=== PATIENT | female | born 1985 | race American Indian/Alaskan Native ===

== ENCOUNTER 2016-04-30 09:19 | Emergency (ER) | payer MEDICAID ==
[2016-04-30 09:48] VITALS: BP 132/80
--- NOTE | 2016-04-30 11:13 | Emergency Department Report ---
HPI - General Chief Complaint: Skin/Abscess/Foreign Body Time Seen by Provider: 04/30/16 10:34 - HPI HPI: 30-year-old female presents today with sore on right sided upper lip 2 days. Denies history of similar symptoms. Denies sick contacts. Positive for minimal bleeding and white discharge. Describes her pain as 3 out of 10. Positive for history of chlamydia but denies any past medical history of herpes. Denies fever, chills, nausea, vomiting, chest pain, shortness of breath , abdominal pain, cough or cold symptoms. ED Past Medical Hx - Past Medical History Hx Hypertension: No Hx Diabetes: No Hx Deep Vein Thrombosis: No Hx Renal Disease: No Hx Sickle Cell Disease: No Hx Seizures: No Hx Asthma: No Hx HIV: No - Surgical History Additional Surgical History: 2 miscarriages in the past. Total of 6 pregnancies - Social History Smoking Status: Never Smoker Substance Use Type: None - Medications Home Medications: Home Medications Medication Instructions Recorded Confirmed Last Taken Type Nitrofurantoin [place]/M-Cryst 100 mg PO Q12HR #14 tabcap 08/22/14 03/24/15 Unknown Rx [Macrobid] Tablet 1 tab PO DAILY 08/22/14 03/24/15 1 Day Ago History 1 Promethazine [Phenergan] 25 mg PO Q12H PRN #12 tab 08/22/14 03/24/15 Unknown Rx Docusate Sodium [Colace CAP] 100 mg PO BID #60 capsule 03/24/15 Unknown Rx HYDROcodone/APAP 5-325 [[place] 1 each PO Q6H PRN #20 tablet 03/24/15 Unknown Rx 5-325 mg TAB] Ibuprofen [Motrin 800 MG tab] 800 mg PO Q8HR PRN #90 tablet 03/24/15 Unknown Rx Naproxen [Naprosyn] 500 mg PO BID #20 tablet 04/30/16 Unknown Rx ED Review of Systems ROS: Stated complaint: INSECT BITE ON LIP Other details as noted in HPI Constitutional: denies: chills, fever, malaise Eyes: denies: eye pain ENT: denies: ear pain, throat pain, congestion Respiratory: denies: cough, shortness of breath, wheezing Cardiovascular: denies: chest pain, palpitations Endocrine: no symptoms reported Gastrointestinal: denies: abdominal pain, nausea, vomiting Neurological: denies: headache, weakness Physical Exam - Physical Exam Vital Signs: Vital Signs 04/30/16 09:44 Temperature 98.1 F Pulse Rate 63 Respiratory 16 Rate Blood Pressure 132/80 O2 Sat by Pulse 100 Oximetry Physical Exam: GENERAL: The patient is well-developed and well-nourished. Patient is in NAD. HEAD: Normocephalic. Atraumatic. EYES: PERRL. NOSE: Normal nasal mucosa with no nasal discharge. THROAT: No erythema, swelling or exudates. LIPS: hyperpigmented lesion with multiple overlying small vesicles noted. No active bleeding or drainage. NECK: Supple, nontender, without lymphadenopathy. CHEST/LUNGS: Clear to auscultation throughout. HEART/CARDIOVASCULAR: Regular rate and rhythm. ABDOMEN: Abdomen is soft, nontender. No guarding or rebound tenderness. EXTREMITIES: Peripheral pulses intact. Capillary refill less than 2 seconds. NEURO: Alert and oriented x 3. Normal gait. ED Course Vital Signs 04/30/16 09:44 Temperature 98.1 F Pulse Rate 63 Respiratory 16 Rate Blood Pressure 132/80 O2 Sat by Pulse 100 Oximetry ED Medical Decision Making - Lab Data Vital Signs 04/30/16 09:44 Temperature 98.1 F Pulse Rate 63 Respiratory 16 Rate Blood Pressure 132/80 O2 Sat by Pulse 100 Oximetry - Medical Decision Making 30-year-old female presents today with a cold sore to her right upper lip. Informed patient pros and cons of acyclovir and patient decided against medication. Patient is in no acute distress at this time. She will be discharged home and is encouraged to follow up with a primary care provider. She will be sent home on naproxen and is encouraged to return to the emergency room for any worsening symptoms. Critical care attestation.: If time is entered above; I have spent that time in minutes in the direct care of this critically ill patient, excluding procedure time. ED Disposition Clinical Impression: Cold sore Disposition: DISCHARGED TO HOME OR SELFCARE Is pt being admited?: No Does the pt Need Aspirin: No Condition: Stable Instructions: Oral Herpes Simplex Virus Infections (ED) Additional Instructions: Follow-up with primary care provider. Return to the emergency department if symptoms worsen. Prescriptions: Naproxen [Naprosyn] 500 mg PO BID #20 tablet Referrals: PRIMARY CARE, [Primary Care Provider] - 3-5 Days [facility] [Outside] - 3-5 Days Forms: Work/School Release Form(ED) Time of Disposition: 11:19
== END 2016-04-30 11:38 | disposition home or self-care (01) ==
LOC: ED 09:19
DX: B00.1 Herpesviral vesicular dermatitis (principal)
CPT/HCPCS: 99282

== ENCOUNTER 2017-05-10 17:44 | Emergency (ER) | payer MEDICAID ==
[2017-05-10 17:50] VITALS: BP 115/76
[2017-05-10 18:05] LABS: Basophils % (Auto) 0.5 % (0.0-1.8); Eosinophils # (Auto) 0.2 K/mm3 (0.0-0.4); Eosinophils % (Auto) 2.3 % (0.0-4.3); Hematocrit 34.6 % (30.3-42.9); Hemoglobin 11.6 gm/dl (10.1-14.3); Lymphocytes # (Auto) 2.6 K/mm3 (1.2-5.4); Lymphocytes % (Auto) 29.3 % (13.4-35.0); Mean Corpuscular HGB Conc 34 % (30-34); Mean Corpuscular Hemoglobin 29 pg (28-32); Mean Corpuscular Volume 87 fl (79-97); Monocytes # (Auto) 0.6 K/mm3 (0.0-0.8); Monocytes % (Auto) 6.2 % (0.0-7.3); Platelet Count 265 K/mm3 (140-440); Red Blood Count 3.98 M/mm3 (3.65-5.03); Red Cell Distribution Width 13.3 % (13.2-15.2)
== END 2017-05-10 17:53 | disposition left against medical advice (07) ==
LOC: ED 17:44
DX: N93.9 Abnormal uterine and vaginal bleeding, unspecified (principal); Z53.21 Procedure and treatment not carried out due to patient leaving prior to being seen by health care provider
CPT/HCPCS: 36415; 84702; 85025; 86850; 86900; 86901

== ENCOUNTER 2017-07-28 11:00 | Outpatient (CLI) | payer MEDICAID ==
[2017-07-28 11:39] VITALS: BP 120/71
[2017-07-28] MEDS ORDERED: LACTATED RINGERS 1,000 ML ONE (11:56)
[2017-07-28] MEDS ORDERED: LACTATED RINGERS 500 ML IV ONE (12:56)
[2017-07-28 13:39] LABS: Bilirubin,Urine NEG (Negative); Blood,Urine NEG (Negative); Color,Urine Yellow (Yellow); Mucus,Urine FEW /HPF; Protein,Urine <15 mg/dL mg/dL (Negative); Urobilinogen,Urine < 2.0 mg/dL (<2.0)
[2017-07-28] MEDS ORDERED: BRETHINE ONE (13:52)
[2017-07-28] MEDS ORDERED: BRETHINE IVP ONE (13:53)
== END 2017-07-28 14:31 | disposition home or self-care (01) ==
LOC: TRG 11:00
PROVIDERS: ATTEND Obstetrics & Gynecology
DX: O47.02 False labor before 37 completed weeks of gestation, second trimester (principal); Z3A.26 26 weeks gestation of pregnancy
CPT/HCPCS: 59025; 81001; J3105; J7120

== ENCOUNTER 2017-08-22 12:05 | Outpatient (CLI) | payer OTHER ==
[2017-08-22] MEDS ORDERED: LACTATED RINGERS 500 ML IV ONE (12:20)
[2017-08-22] MEDS ORDERED: CELESTONE SOLUSPAN IM ONE (13:00)
--- NOTE | 2017-08-22 15:43 | Ultrasound Report ---
FINAL REPORT EXAM: US OB FOLLOW UP HISTORY: labor TECHNIQUE: Transabdominal sonography of the pelvis. PRIORS: None. FINDINGS: There is a single, live intrauterine in cephalic presentation. heart motion is detected and heart rate is 142 beats per minute. Placenta is located posterior and there is no evidence of previa. Cervical length 2.6 cm. Biometric data obtained and corresponds to an estimated gestational age of 30 weeks 3 days and an ultrasound estimated date of delivery of 28 October 2017 (it should be noted that an examination performed earlier in may yield more accurate dating). survey not performed. Amniotic fluid index is 12.2 cm. BPD: 7.58 cm HC: 29.17 cm AC: 25.86 cm FL: 5.50 cm Remainder of the uterus and adnexa grossly unremarkable. IMPRESSION: 1. Single, live intrauterine .
[2017-08-23 06:54] VITALS: BP 104/62
== END 2017-08-22 16:10 | disposition home or self-care (01) ==
LOC: US 12:05 → TRG 12:06 → US 16:10
PROVIDERS: ATTEND Obstetrics & Gynecology
DX: O47.03 False labor before 37 completed weeks of gestation, third trimester (principal); Z3A.30 30 weeks gestation of pregnancy
CPT/HCPCS: 59025; 76816; 96372; J0702; J7120

== ENCOUNTER 2017-08-23 13:52 | Outpatient (CLI) | payer OTHER ==
[2017-08-23 14:07] VITALS: BP 111/66
[2017-08-23] MEDS ORDERED: CELESTONE SOLUSPAN IM ONE (14:10)
--- NOTE | 2017-08-23 14:46 | Progress Note ---
Assessment and Plan A: at 30 weeks gestation. Shortened cervix. P: NST reactive. Betamethasone injection. Keep follow up appointment at [facility]. Rest at home; avoid IC. PTL warning signs discussed with pt. Subjective - Subjective Date of service: 08/23/17 Principal diagnosis: at 30 weeks gestation. Interval history: 31 year old female patient presents to triage for her second Betamethasone injection and an NST. Pt. states she had positive FFN and shortened cervix in office earlier this week. Pt. reports active movement. She denies contractions. She denies leaking of fluid or vaginal bleeding. She states she has been resting. NST reactive. No contractions noted per monitor. No contractions palpated. Patient received Betamethasone injection while here in triage today. Pt. to continue to rest and avoid IC and follow up with [facility] as scheduled. PTL warning signs discussed. Objective - Vital Signs Vital Signs: Vital Signs - 12hr 08/23/17 08/23/17 07:05 14:10 Pulse Rate 111 H 101 H Blood Pressure 111/66 O2 Sat by Pulse 100 Oximetry - Exam Abdomen: Present: normal appearance, soft. Absent: tenderness, guarding Uterus: Present: other (enlarged, gravid) FHR: category 1 Uterine Contraction Monitor Mode: External Uterine Contraction Pattern: Absent
== END 2017-08-23 15:00 | disposition home or self-care (01) ==
LOC: TRG 13:52
PROVIDERS: ATTEND Obstetrics & Gynecology
DX: O47.03 False labor before 37 completed weeks of gestation, third trimester (principal); Z3A.30 30 weeks gestation of pregnancy
CPT/HCPCS: 59025; 96372; J0702

== ENCOUNTER 2017-08-26 19:51 | Outpatient (CLI) | payer OTHER ==
[2017-08-26 21:41] VITALS: BP 105/60
[2017-08-26] MEDS ORDERED: LACTATED RINGERS 1,000 ML IV ONE (21:44)
[2017-08-26 21:55] LABS: Bilirubin,Urine NEG (Negative); Blood,Urine NEG (Negative); Color,Urine Yellow (Yellow); Mucus,Urine FEW /HPF; Protein,Urine <15 mg/dL mg/dL (Negative); Urobilinogen,Urine < 2.0 mg/dL (<2.0); WBC,Urine < 1.0 /HPF (0.0-6.0)
== END 2017-08-26 22:44 | disposition home or self-care (01) ==
LOC: TRG 19:51
PROVIDERS: ATTEND Obstetrics & Gynecology
DX: O62.9 Abnormality of forces of labor, unspecified (principal); Z3A.31 31 weeks gestation of pregnancy
CPT/HCPCS: 59025; 81001

== ENCOUNTER 2017-09-12 19:21 | Outpatient (CLI) | payer OTHER ==
[2017-09-12] MEDS ORDERED: LACTATED RINGERS 1,000 ML IV ONE (19:44)
[2017-09-12 20:43] LABS: Bilirubin,Urine NEG (Negative); Blood,Urine NEG (Negative); Color,Urine Straw (Yellow); Mucus,Urine FEW /HPF; Protein,Urine <15 mg/dL mg/dL (Negative); RBC,Urine < 1.0 /HPF (0.0-6.0); Urobilinogen,Urine < 2.0 mg/dL (<2.0)
[2017-09-12 21:35] LABS: WBC,Urine < 1.0 /HPF (0.0-6.0)
[2017-09-12 22:26] VITALS: BP 116/66
== END 2017-09-12 21:50 | disposition home or self-care (01) ==
LOC: TRG 19:21
PROVIDERS: ATTEND Obstetrics & Gynecology
DX: O47.03 False labor before 37 completed weeks of gestation, third trimester (principal); Z82.49 Family history of ischemic heart disease and other diseases of the circulatory system; Z3A.33 33 weeks gestation of pregnancy
CPT/HCPCS: 59025; 81001; 96360

== ENCOUNTER 2017-09-18 15:50 | Outpatient (CLI) | payer OTHER ==
[2017-09-18 16:56] VITALS: BP 108/56
[2017-09-18] MEDS ORDERED: LACTATED RINGERS 500 ML IV ONE (17:21)
[2017-09-18 19:34] LABS: Bacteria,Urine 1+ /HPF (Negative); Bilirubin,Urine NEG (Negative); Blood,Urine NEG (Negative); Color,Urine Yellow (Yellow); Mucus,Urine FEW /HPF; Protein,Urine <15 mg/dL mg/dL (Negative); Urobilinogen,Urine < 2.0 mg/dL (<2.0)
--- NOTE | 2017-09-18 23:26 | Ultrasound Report ---
FINAL REPORT PROCEDURE: US OB BPP WO NON-STRESS TECHNIQUE: Sonographic evaluation for breathing, movement, tone, and amniotic fluid volume was performed. CPT 61112 HISTORY: Non Reassuring Heart Rate Tracing COMPARISON: No prior studies are available for comparison. FINDINGS: Amniotic fluid volume: Normal-score 2. At least one vertical pocket > 2 cm or more in vertical axis. breathing: Normal-score 2. movement: Normal-score 2. tone: Normal. Score: 8 of 8. IMPRESSION: Normal biophysical profile.
== END 2017-09-18 21:00 | disposition home or self-care (01) ==
LOC: TRG 15:50
PROVIDERS: ATTEND Obstetrics & Gynecology
DX: O47.03 False labor before 37 completed weeks of gestation, third trimester (principal); Z3A.34 34 weeks gestation of pregnancy
CPT/HCPCS: 59025; 76819; 81001

== ENCOUNTER 2017-09-20 20:35 | Outpatient (CLI) | payer OTHER ==
[2017-09-20] MEDS ORDERED: LACTATED RINGERS 500 ML IV ONE (20:49)
[2017-09-20 20:51] VITALS: BP 121/65
--- NOTE | 2017-09-20 21:45 | Ultrasound Report ---
FINAL REPORT EXAM: US OB BPP WO NON-STRESS HISTORY: labor TECHNIQUE: Biophysical profile obstetrical ultrasound PRIORS: 09/18/2017 Ob ultrasound FINDINGS: clinical Age: 34 w 0 D Biophysical profile scoring 2 movement 2 tone 2 breathing 2 fluid 8/8 overall score Cardiac motion: 137 BPM using M-mode doppler IMPRESSION: Single intrauterine viable with an approximate age of 4 weeks biophysical profile score is 8/8
--- NOTE | 2017-09-20 21:49 | Ultrasound Report ---
FINAL REPORT EXAM: US OB LIMITED HISTORY: labor TECHNIQUE: Limited obstetrical ultrasound PRIORS: Prior OB ultrasound 09/18/2017 and 08/22/2017 FINDINGS: LMP: 01/21/2017 clinical Age: 34 w LMP EDC 10/28/2017 Presentation: Cephalic Activity: Monitored Placental location: Fundal Placental grade: II Cardiac motion: 137 BPM using M-mode doppler Amniotic Fluid Volume: Adequate ARMINDA 8.3 cm (normal) IMPRESSION: Single intrauterine viable with an approximate age of 34 weeks
--- NOTE | 2017-09-21 23:07 | Event Note ---
Date: 09/20/17 Patient, who is at 34 weeks, 4 days gestation, presents to triage complaining of decreased movement. Patient denies contractions, vaginal bleeding, leaking of fluid, abdominal pain, falls or abdominal trauma. NST reactive. BPP 8/8. Vital signs stable. Patient reports she feels good movement during NST. Patient was discharged home and advised to perform daily movement counting and follow up with [facility] office this week.
== END 2017-09-20 22:07 | disposition home or self-care (01) ==
LOC: TRG 20:35
PROVIDERS: ATTEND Obstetrics & Gynecology
DX: O47.03 False labor before 37 completed weeks of gestation, third trimester (principal); Z3A.34 34 weeks gestation of pregnancy
CPT/HCPCS: 59025; 76815; 76819

== ENCOUNTER 2018-10-18 09:25 | Emergency (ER) | payer OTHER ==
[2018-10-18 09:41] VITALS: BP 108/68
[2018-10-18 10:33] LABS: Basophils % (Auto) 0.4 % (0.0-1.8); Eosinophils # (Auto) 0.2 K/mm3 (0.0-0.4); Eosinophils % (Auto) 2.3 % (0.0-4.3); Hematocrit 36.4 % (30.3-42.9); Hemoglobin 12.6 gm/dl (10.1-14.3); Lymphocytes # (Auto) 2.3 K/mm3 (1.2-5.4); Lymphocytes % (Auto) 33.9 % (13.4-35.0); Mean Corpuscular HGB Conc 35 % (30-34); Mean Corpuscular Volume 85 fl (79-97); Monocytes # (Auto) 0.5 K/mm3 (0.0-0.8); Monocytes % (Auto) 7.7 % (0.0-7.3); Platelet Count 247 K/mm3 (140-440); Red Blood Count 4.26 M/mm3 (3.65-5.03); Red Cell Distribution Width 13.3 % (13.2-15.2)
[2018-10-18 10:41] LABS: Bilirubin,Urine NEG (Negative); Blood,Urine NEG (Negative); Color,Urine Yellow (Yellow); Protein,Urine <15 mg/dL mg/dL (Negative); Urobilinogen,Urine < 2.0 mg/dL (<2.0)
--- NOTE | 2018-10-18 11:25 | Ultrasound Report ---
ULTRASOUND OBSTETRIC INDICATION / CLINICAL INFORMATION: preg with abd pain/bleeding. TECHNIQUE: Transabdominal. COMPARISON: None FINDINGS: GESTATIONAL SAC: Well-defined oval shape and intrauterine in location. YOLK SAC: No significant abnormality. EMBRYO/FETUS: No significant abnormality. - [place]-Rump Length = 6.11 cm = 12 weeks, 4 day(s). - Heart Rate, beats per minute (if present) = 143 ADNEXA: Right ovary appears within normal limits. Small 1.3 x 1.0 x 1.4 cm left ovarian follicular cy st is noted. FREE FLUID: None. ADDITIONAL FINDINGS: None. IMPRESSION: 1. Single, living intrauterine with estimated sonographic age of 12 weeks, 4 day(s). 2. 1.4 cm left ovarian follicular cyst. No free fluid. Signer Name: Mani Gutiérrez MD Signed: 10/18/2018 11:20 AM Workstation Name: [id number]
--- NOTE | 2018-10-18 12:57 | Emergency Department Report ---
ED HPI - General Chief complaint: Vaginal Bleeding Stated complaint: 13WKS /SPOTTING/BACK PAIN/HEADACHE Time Seen by Provider: 10/18/18 09:56 Source: patient Mode of arrival: Ambulatory Limitations: No Limitations - History of Present Illness MD Complaint: vaginal bleeding -: days(s) (2) Location: abdomen Radiation: suprapubic (minimal) Severity: mild Severity scale (0 -10): 3 Quality: cramping Consistency: intermittent Improves with: none Worsens with: none Associated symptoms: nausea/vomiting (occational), vaginal bleeding (spotting). denies: vaginal discharge, abdominal pain, headache, malaise, dysparuenia - Related Data Home Medications Medication Instructions Recorded Confirmed Last Taken Tablet 1 tab PO DAILY 08/22/14 10/08/17 10/08/17 Allergies Allergy/AdvReac Type Severity Reaction Status Date / Time No Known Allergies Allergy Verified 05/10/17 17:47 ED Review of Systems ROS: Stated complaint: 13WKS /SPOTTING/BACK PAIN/HEADACHE Other details as noted in HPI Comment: All other systems reviewed and negative ED Past Medical Hx - Past Medical History Hx Hypertension: Yes Hx Congestive Heart Failure: No Hx Diabetes: No Hx Deep Vein Thrombosis: No Hx Renal Disease: No Hx Sickle Cell Disease: No Hx Seizures: No Hx Asthma: No Hx COPD: No Hx HIV: No - Surgical History Additional Surgical History: 2 miscarriages in the past. Total of 7 pregnancies - Social History Smoking Status: Never Smoker Substance Use Type: None - Medications Home Medications: Home Medications Medication Instructions Recorded Confirmed Last Taken Type Tablet 1 tab PO DAILY 08/22/14 10/08/17 10/08/17 History ED Physical Exam - General Limitations: No Limitations General appearance: alert, in no apparent distress - Head Head exam: Present: atraumatic, normocephalic - Eye Eye exam: Present: normal appearance - ENT ENT exam: Present: mucous membranes moist - Neck Neck exam: Present: normal inspection - Respiratory Respiratory exam: Present: normal lung sounds bilaterally. Absent: respiratory distress, wheezes, rales, rhonchi - Cardiovascular Cardiovascular Exam: Present: regular rate, normal rhythm. Absent: systolic murmur, diastolic murmur, rubs, gallop - GI/Abdominal GI/Abdominal exam: Present: soft, guarding, normal bowel sounds. Absent: distended, tenderness, rebound - Extremities Exam Extremities exam: Present: normal inspection - Back Exam Back exam: Present: normal inspection - Neurological Exam Neurological exam: Present: alert, oriented X3 - Psychiatric Psychiatric exam: Present: normal affect, normal mood - Skin Skin exam: Present: warm, dry, intact, normal color. Absent: rash ED Course Vital Signs 10/18/18 09:39 Temperature 98 F Pulse Rate 89 Respiratory 16 Rate Blood Pressure 108/68 O2 Sat by Pulse 98 Oximetry ED Medical Decision Making - Lab Data Result diagrams: 10/18/18 09:54 Lab Results 10/18/18 10/18/18 10/18/18 Range/Units 09:54 09:54 10:19 WBC 6.7 (4.5-11.0) K/mm3 RBC 4.26 (3.65-5.03) M/mm3 Hgb 12.6 (10.1-14.3) gm/dl Hct 36.4 (30.3-42.9) % MCV 85 (79-97) fl MCH 30 (28-32) pg MCHC 35 H (30-34) % RDW 13.3 (13.2-15.2) % Plt Count 247 (140-440) K/mm3 Lymph % (Auto) 33.9 (13.4-35.0) % [place] % (Auto) 7.7 H (0.0-7.3) % Eos % (Auto) 2.3 (0.0-4.3) % Baso % (Auto) 0.4 (0.0-1.8) % Lymph # 2.3 (1.2-5.4) K/mm3 [place] # 0.5 (0.0-0.8) K/mm3 Eos # 0.2 (0.0-0.4) K/mm3 Baso # 0.0 (0.0-0.1) K/mm3 Seg Neutrophils % 55.7 (40.0-70.0) % Seg Neutrophils # 3.7 (1.8-7.7) K/mm3 HCG, Quant 04428 H (0-4) mIU/mL Urine Color Yellow (Yellow) Urine Turbidity Clear (Clear) Urine pH 8.0 H (5.0-7.0) Ur Specific [place] 1.019 (1.003-1.030) Urine Protein <15 mg/dl (Negative) mg/dL Urine Glucose (UA) Neg (Negative) mg/dL Urine Ketones Neg (Negative) mg/dL Urine Blood Neg (Negative) Urine Nitrite Neg (Negative) Urine Bilirubin Neg (Negative) Urine Urobilinogen < 2.0 (<2.0) mg/dL Ur Leukocyte Esterase Neg (Negative) Urine WBC (Auto) 1.0 (0.0-6.0) /HPF Urine RBC (Auto) 2.0 (0.0-6.0) /HPF U Epithel Cells (Auto) 3.0 (0-13.0) /HPF Blood type O+ - Radiology Data [facility] [address] [place] [address] Ultrasound Report Signed Patient: DIANDRA EVANGELISTA MR#: [id number] : 1985 Acct:[id number] Age/Sex: 32 / F ADM Date: 10/18/18 Loc: ED Attending Dr: Ordering Physician: CARROL LOCKETT MD Date of Service: 10/18/18 Procedure(s): US OB <= 14 weeks fetus Accession Number(s): [id number] cc: CARROL LOCKETT MD ULTRASOUND OBSTETRIC INDICATION / CLINICAL INFORMATION: preg with abd pain/bleeding. TECHNIQUE: Transabdominal. COMPARISON: None FINDINGS: GESTATIONAL SAC: Well-defined oval shape and intrauterine in location. YOLK SAC: No significant abnormality. EMBRYO/FETUS: No significant abnormality. - [place]-Rump Length = 6.11 cm = 12 weeks, 4 day(s). - Heart Rate, beats per minute (if present) = 143 ADNEXA: Right ovary appears within normal limits. Small 1.3 x 1.0 x 1.4 cm left ovarian follicular cyst is noted. FREE FLUID: None. ADDITIONAL FINDINGS: None. IMPRESSION: 1. Single, living intrauterine with estimated sonographic age of 12 weeks, 4 day(s). 2. 1.4 cm left ovarian follicular cyst. No free fluid. Signer Name: Mani Gutiérrez MD Signed: 10/18/2018 11:20 AM Workstation Name: [id number] Transcribed By: TL Dictated By: Mani Gutiérrez MD Electronically Authenticated By: Mani Gutiérrez MD Signed Date/Time: 10/18/18 1120 DD/ 1118 TD/TT: - Medical Decision Making The patient is a 32-year-old female who is here for some vaginal spotting. Ultrasound shows a viable IUP. There is no urinary tract infection. Patient given information on threatened miscarriage. Patient discharged home. Critical care attestation.: If time is entered above; I have spent that time in minutes in the direct care of this critically ill patient, excluding procedure time. ED Disposition Clinical Impression: First trimester bleeding Disposition: DC- TO HOME OR SELFCARE Is pt being admited?: No Does the pt Need Aspirin: No Condition: Stable Instructions: Threatened Miscarriage (ED) Referrals: SCAR GE MD [Primary Care Provider] - 3-5 Days Forms: Work/School Release Form(ED) Time of Disposition: 12:56
== END 2018-10-18 13:04 | disposition home or self-care (01) ==
LOC: ED 09:25
DX: O20.8 Other hemorrhage in early pregnancy (principal); O10.911 Unspecified pre-existing hypertension complicating pregnancy, first trimester; Z79.899 Other long term (current) drug therapy; Z3A.12 12 weeks gestation of pregnancy
CPT/HCPCS: 36415; 76801; 81001; 84702; 85025

== ENCOUNTER 2018-12-04 18:25 | Outpatient (CLI) | payer OTHER ==
[2018-12-04 19:18] LABS: Bilirubin,Urine NEG (Negative); Blood,Urine NEG (Negative); Color,Urine Yellow (Yellow); Mucus,Urine FEW /HPF; Protein,Urine <15 mg/dL mg/dL (Negative); Urobilinogen,Urine < 2.0 mg/dL (<2.0); WBC,Urine < 1.0 /HPF (0.0-6.0)
[2018-12-04 20:33] LABS: Basophils # (Auto) 0.1 K/mm3 (0.0-0.1); Basophils % (Auto) 0.5 % (0.0-1.8); Eosinophils # (Auto) 0.4 K/mm3 (0.0-0.4); Eosinophils % (Auto) 3.7 % (0.0-4.3); Hematocrit 33.4 % (30.3-42.9); Hemoglobin 11.9 gm/dl (10.1-14.3); Lymphocytes # (Auto) 3.3 K/mm3 (1.2-5.4); Lymphocytes % (Auto) 34.6 % (13.4-35.0); Mean Corpuscular HGB Conc 36 % (30-34); Mean Corpuscular Volume 85 fl (79-97); Monocytes # (Auto) 0.7 K/mm3 (0.0-0.8); Monocytes % (Auto) 7.2 % (0.0-7.3); Platelet Count 239 K/mm3 (140-440); Red Blood Count 3.95 M/mm3 (3.65-5.03); Red Cell Distribution Width 13.8 % (13.2-15.2)
[2018-12-04 20:40] LABS: Amphetamine Screen,Urine PRESUMPTIVE NEGATIVE; Benzodiazepines Screen,Urine PRESUMPTIVE NEGATIVE; Cannabinoid Screen,Urine PRESUMPTIVE NEGATIVE; Cocaine Screen,Urine PRESUMPTIVE NEGATIVE; Methadone Screen,Urine PRESUMPTIVE NEGATIVE; Opiate Screen,Urine PRESUMPTIVE NEGATIVE
[2018-12-04 20:56] LABS: Alanine Aminotransferase 13 units/L (7-56); Albumin 3.5 g/dL (3.9-5); BUN/Creatinine Ratio 12; Blood Urea Nitrogen 7 mg/dL (7-17); Calcium 9.6 mg/dL (8.4-10.2); Hemolysis Index 73
[2018-12-04] MEDS ORDERED: ZOLPIDEM 5 MG TAB PO PRN (22:26)
[2018-12-04] MEDS ORDERED: LACTATED RINGERS 1,000 ML IV ONE (22:28)
[2018-12-04] MEDS ORDERED: ACETAMINOPHEN 325 MG TAB PO PRN (22:29)
--- NOTE | 2018-12-04 23:30 | Ultrasound Report ---
LIMITED RUQ ABDOMINAL ULTRASOUND INDICATION: RUQ pain. COMPARISON: No relevant prior imaging study available. FINDINGS: Pancreas: Visualized portions show no significant abnormality. Abdominal Aorta: No significant abnormality. IVC: No significant abnormality. Liver: No significant abnormality. Normal hepatopedal blood flow in the main portal vein. Gallbladder: Surgically absent. Bile ducts: No significant abnormality. Common bile duct measures 1.6 mm. Right kidney: No significant abnormality visualized.. Free fluid: None. Additional Findings: None. IMPRESSION: 1. No acute findings. Previous cholecystectomy. Signer Name: Adama Bear MD Signed: 12/04/2018 11:25 PM Workstation Name: [id number]
--- NOTE | 2018-12-04 23:31 | Ultrasound Report ---
US renal BILAT INDICATION: R/O stone. COMPARISON: None available. FINDINGS: Right kidney: 11.1 cm in length. No significant abnormality. Left kidney: 10.8 cm in length. No significant abnormality. Urinary Bladder: No significant abnormality. Additional Findings: None. IMPRESSION: 1. No significant sonographic abnormality of the kidneys. Signer Name: Adama Bear MD Signed: 12/04/2018 11:26 PM Workstation Name: [id number]
--- NOTE | 2018-12-04 23:32 | Ultrasound Report ---
ULTRASOUND BIOPHYSICAL PROFILE INDICATION / CLINICAL INFORMATION: labor and pelvic pain. COMPARISON: None available. FINDINGS: PLACENTAL POSITION: is posterior and grade 0. AMNIOTIC FLUID INDEX (cm) = 13.4 PRESENTATION: Breech. HEART RATE (beats per minute): 131 IMPRESSION: 1. Living intrauterine with breech presentation and normal ARMINDA. Signer Name: Adama Bear MD Signed: 12/04/2018 11:28 PM Workstation Name: [id number]
[2018-12-05 04:51] VITALS: BP 106/57
== END 2018-12-05 06:04 | disposition home or self-care (01) ==
LOC: TRG 18:25
PROVIDERS: ATTEND Obstetrics & Gynecology
DX: O26.892 Other specified pregnancy related conditions, second trimester (principal); R10.30 Lower abdominal pain, unspecified; M54.5 Low back pain; R42 Dizziness and giddiness; R10.2 Pelvic and perineal pain; O32.1XX0 Maternal care for breech presentation, not applicable or unspecified; O13.3 Gestational [pregnancy-induced] hypertension without significant proteinuria, third trimester; O60.03 Preterm labor without delivery, third trimester; Z90.49 Acquired absence of other specified parts of digestive tract; Z3A.20 20 weeks gestation of pregnancy
CPT/HCPCS: 36415; 76705; 76770; 76815; 80053; 80307; 81001; 85025; 86850; 86900; 86901; 96360; J7120

== ENCOUNTER 2019-02-25 17:33 | Outpatient (CLI) | payer OTHER ==
[2019-02-25 18:27] VITALS: BP 112/57
[2019-02-25] MEDS ORDERED: LACTATED RINGERS 500 ML IV ONE (18:45)
[2019-02-25 19:03] LABS: Bilirubin,Urine NEG (Negative); Blood,Urine NEG (Negative); Color,Urine Yellow (Yellow); Mucus,Urine FEW /HPF; Protein,Urine <15 mg/dL mg/dL (Negative); Urobilinogen,Urine < 2.0 mg/dL (<2.0)
[2019-02-25] MEDS ORDERED: BETAMET ACET/BETAMET NA PH 6 MG/ML INJ 5 ML MDV IM ONE (19:30)
== END 2019-02-25 19:49 | disposition home or self-care (01) ==
LOC: TRG 17:33
PROVIDERS: ATTEND Obstetrics & Gynecology
DX: O62.9 Abnormality of forces of labor, unspecified (principal); Z3A.31 31 weeks gestation of pregnancy
CPT/HCPCS: 59025; 81001; 96372; J0702

== ENCOUNTER 2019-02-26 19:15 | Outpatient (CLI) | payer OTHER ==
[2019-02-26] MEDS ORDERED: BETAMET ACET/BETAMET NA PH 6 MG/ML INJ 5 ML MDV IM ONE (20:12)
[2019-02-26 20:39] VITALS: BP 99/53
== END 2019-02-26 20:45 | disposition home or self-care (01) ==
LOC: TRG 19:15
PROVIDERS: ATTEND Obstetrics & Gynecology
DX: O62.9 Abnormality of forces of labor, unspecified (principal); Z3A.32 32 weeks gestation of pregnancy
CPT/HCPCS: 96372; J0702

== ENCOUNTER 2019-03-19 17:29 | Inpatient (IN) | payer OTHER ==
[2019-03-19 18:23] LABS: Bilirubin,Urine NEG (Negative); Blood,Urine NEG (Negative); Color,Urine Yellow (Yellow); Mucus,Urine FEW /HPF; Protein,Urine <15 mg/dL mg/dL (Negative); Urobilinogen,Urine < 2.0 mg/dL (<2.0)
[2019-03-19] MEDS ORDERED: LACTATED RINGERS 500 ML IV ONE (19:00)
[2019-03-19] MEDS ORDERED: LACTATED RINGERS 1,000 ML IV ONE (19:02)
[2019-03-19] MEDS ORDERED: ZOLPIDEM 5 MG TAB PO PRN (22:08)
[2019-03-19] MEDS ORDERED: LACTATED RINGERS 1,000 ML ONE (23:00)
[2019-03-19 23:58] LABS: Basophils % (Auto) 0.5 % (0.0-1.8); Eosinophils % (Auto) 1.3 % (0.0-4.3); Hemoglobin 11.6 gm/dl (10.1-14.3); Lymphocytes # (Auto) 2.7 K/mm3 (1.2-5.4); Lymphocytes % (Auto) 37.9 % (13.4-35.0); Mean Corpuscular HGB Conc 33 % (30-34); Mean Corpuscular Volume 84 fl (79-97); Mean Platelet Volume 8.8 fl (6-12); Monocytes # (Auto) 0.5 K/mm3 (0.0-0.8); Monocytes % (Auto) 6.3 % (0.0-7.3); Platelet Count 233 K/mm3 (140-440); Red Blood Count 4.18 M/mm3 (3.65-5.03); Red Cell Distribution Width 13.8 % (13.2-15.2)
[2019-03-19 23:59] LABS: Eosinophils # (Auto) 0.1 K/mm3 (0.0-0.4)
[2019-03-20] MEDS ORDERED: LACTATED RINGERS 1,000 ML ONE (00:17)
[2019-03-20] MEDS ORDERED: TERBUTALINE 1 MG/1 ML INJ SUB-Q PRN (09:23)
[2019-03-20] MEDS ORDERED: ePHEDrine SULFATE 50 MG/1 ML INJ IV PRN (09:23)
[2019-03-20] MEDS ORDERED: LIDOCAINE (2%) 20 MG/1 ML VIAL 20 ML MDV INFILTRATI ONE (09:23)
--- NOTE | 2019-03-20 09:37 | History and Physical Report ---
History of Present Illness Date of examination: 03/20/19 Date of admission: 03/19/19 18:00 Chief complaint: Contractions History of present illness: 33 year old who was admitted yesterday evening by Dr. Hammond due to contractions. Patient states contractions continue but are less frequent than they were last night. Patient denies leaking of fluid. No VB. Patient reports active movement. Patient received IV hydration last night per Dr. Hammond's order. Patient states she received full course of steroids 3 weeks ago here at [facility] and records were located to confirm this. Patient received care at [facility] and records are available. LMP 07/17/18. EDC 04/23/19 (confirmed by US done at 7 weeks gestation). significant for the following: previous LTCS for breech (patient has had 2 successful VBACs since that time and she states she desires for this as well); vitamin D deficiency (supplemented with vitamin D); history of preeclampsia x 2 with previous pregnancies (one instance of severe preeclampsia); GBS unknown. labs are as follows: O+, antibody screen negative, rubella immune, hepatitis B surface antigen negative, RPR nonreactive, HIV negative, gonorrhea negative, chlamydia negative, trichomonas negative, GBS unknown, HSV 2 negative, AFP negative, 1 hour sugar test 136, FFN positive. 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 denies: smoking, alcohol abuse, prescription drug abuse, IV drug use - Obstetrical History Expected Date of Delivery: 04/23/19 Actual Gestation: 35 Week(s) 1 Day(s) : 9 Para: 5 Hx # Term Pregnancies: 3 Number of Pregnancies: 3 (one of these births was an elective termination due to Ferraro's syndrome, cystic hygroma, and IUGR; another was an IOL at 35 weeks for severe preeclampsia, and another was LTCS for breech presentation) Spontaneous Abortions: 2 Induced : 0 Number of Living Children: 5 Medications and Allergies Allergies Allergy/AdvReac Type Severity Reaction Status Date / Time No Known Allergies Allergy Verified 05/10/17 17:47 Home Medications Medication Instructions Recorded Confirmed Last Taken Type Tablet 1 tab PO DAILY 08/22/14 03/20/19 03/18/19 05:00 History 1 Active Meds: Active Medications Ephedrine Sulfate (Ephedrine Sulfate) 10 mg IV Q2M PRN PRN Reason: Hypotension Fentanyl (Sublimaze) 100 mcg IV Q2H PRN PRN Reason: Labor Pain Oxytocin/Sodium Chloride (Pitocin/Ns 20 Unit/1000ml Drip) 20 units in 1,000 mls @ 125 mls/hr IV DIRECT YOAN Lactated Ringer's (Lactated Ringers) 1,000 mls @ 125 mls/hr IV DIRECT YOAN Ampicillin Sodium (Ampicillin/Ns 2 Gm/100 Ml) 2 gm in 100 mls @ 100 mls/hr IV ONCE ONE; Protocol Stop: 03/20/19 10:59 Ampicillin Sodium (Ampicillin/Ns 1 Gm/50 Ml) 1 gm in 50 mls @ 100 mls/hr IV Q4HR YOAN; Protocol Terbutaline Sulfate (Brethine) 0.25 mg SUB-Q ONCE PRN PRN Reason: Hyperstimulation/Hypertonicity Zolpidem Tartrate (Ambien) 5 mg PO QHS PRN PRN Reason: Sleep Review of Systems All systems: negative (contractions) - Vital Signs Vital signs: Vital Signs Pulse Pulse Ox 86 97 03/19/19 18:12 03/19/19 18:12 Temp Pulse Resp BP Pulse Ox 98.2 F 103 H 20 120/69 97 03/20/19 07:40 03/20/19 09:31 03/20/19 07:40 03/20/19 09:24 03/20/19 09:31 - Physical Exam Abdomen: Positive: normal appearance, soft. Negative: distention, tenderness, guarding, rigidity Genitourinary (Female): Positive: normal external genitalia, normal perenium. Negative: perineal/vulvar lesions (no lesions noted on careful exam with bright light upon admission) Vagina: Positive: normal moisture Uterus: Positive: enlarged. Negative: tender Anus/Rectum: Positive: normal perianal skin Extremities: Positive: normal. Negative: edema - Obstetrical FHR: category 1 Uterine Contraction Monitor Mode: External Cervical Dilatation: 5 Cervical Effacement Percentage: 50 station: -4 Uterine Contraction Pattern: Irregular Uterine Contraction Intensity: Mild Results Result Diagrams: 03/19/19 19:00 Abnormal lab results 03/19/19 Range/Units 19:00 Lymph % (Auto) 37.9 H (13.4-35.0) % All other labs normal. Assessment and Plan A: at 35 weeks, 1 day gestation. labor. GBS unknown. Previous LTCS with 2 successful VBACs. Patient has received full course of steroids during previous admission in 02/2019. P: Admit. Continuous EFM. GBS prophylaxis. Patient desires TOLAC. Consulted with Dr. Aburto re: this patient who is of gestation and her desire for TOLAC. US ordered to confirm presentation.
[2019-03-20] MEDS ORDERED: OXYTOCIN 20 UNIT/1000ML DRIP 20 UNITS/1,000 ML BAG IV SCH (10:00)
[2019-03-20] MEDS ORDERED: LACTATED RINGERS 1,000 ML IV SCH (10:00)
[2019-03-20] MEDS ORDERED: AMPICILLIN/NS 2 GM/100 ML 2 GM/100 ML BAG IV ONE (10:00)
--- NOTE | 2019-03-20 13:45 | Ultrasound Report ---
Limited OB ultrasound. 03/20/2019. HISTORY: Evaluate presentation. FINDINGS: A viable intrauterine is in the cephalic position. heart tones are 144 bpm. Signer Name: Ruslan Browning MD Signed: 03/20/2019 1:41 PM Workstation Name: [id number]
--- NOTE | 2019-03-20 14:25 | Event Note ---
Date: 03/20/19 Pulse oximeter not on patient but recording inaccurate results on computer. Radial pulse taken: 98 bpm just now. Spoke with patient's nurse and informed her that recordings for pulse and O2 sat are not accurate. Nurse states that pulse ox is not attached to patient at this time but will look into this.
[2019-03-20] MEDS: AMPICILLIN/NS 1 GM/50 ML 1 GM/50 ML BAG IV SCH ×2 (14:46→19:15)
[2019-03-20] MEDS ORDERED: ONDANSETRON 4 MG/2 ML INJ ONE (21:07)
[2019-03-20] MEDS ORDERED: ONDANSETRON 4 MG/2 ML INJ IV PRN (21:19)
[2019-03-20] MEDS ORDERED: FAMOTIDINE 20 MG/2 ML INJ IV ONE (21:25)
[2019-03-20] MEDS ORDERED: FAMOTIDINE 20 MG TAB PO SCH (22:00)
--- NOTE | 2019-03-20 22:30 | Event Note ---
Date: 03/20/19 Patient reports chest discomfort after drinking a large cup of sweet tea. Normal sinus rhythm on EKG. Patient was given Zofran for nausea and Pepcid for GERD. Patient states chest pain has resolved. Vital signs are stable. She denies leg pain or SOB.
[2019-03-21] MEDS: AMPICILLIN/NS 1 GM/50 ML 1 GM/50 ML BAG IV SCH ×2 (06:00→15:46)
--- NOTE | 2019-03-21 08:22 | Progress Note ---
Assessment and Plan A: at 35 weeks, 2 days gestation. Contractions and history of previous section, with advanced cervical dilation. GBS unknown, receiving GBS prophylaxis. P: Continue electronic monitoring. Consulted with Dr. Aburto re: this patient; Dr. Aburto states to augment patient's labor. Discussed plan to augment labor with patient. Patient consented to augmentation of labor. Patient has signed consent form. Subjective - Subjective Date of service: 03/21/19 Principal diagnosis: at 35 2/7 weeks gestation Interval history: Patient at 35 2/7 weeks gestation with contractions and previous section. Patient wants TOLAC. Contractions are irregular and mild and patient states she does not feel most of them. Patient denies VB or LOF. Patient reports active movement. Patient reports: movement normal, contractions, no new complaints, no loss of fluid, no vaginal bleeding Objective - Vital Signs Vital Signs: Vital Signs - 12hr 03/20/19 03/20/19 03/20/19 20:21 20:26 20:31 Pulse Rate 94 H 88 95 H Blood Pressure O2 Sat by Pulse 98 99 98 Oximetry 03/20/19 03/20/19 03/20/19 20:36 20:46 20:47 Pulse Rate 92 H 76 Blood Pressure O2 Sat by Pulse 99 78 L 86 Oximetry 03/20/19 03/20/19 03/20/19 20:51 20:52 20:57 Pulse Rate 62 118 H 95 H Blood Pressure O2 Sat by Pulse 69 L 87 96 Oximetry 03/20/19 03/20/19 03/20/19 21:02 21:07 21:10 Pulse Rate 110 H 99 H 97 H Blood Pressure 120/73 O2 Sat by Pulse 99 100 Oximetry 03/20/19 03/20/19 03/20/19 21:12 21:17 21:22 Pulse Rate 114 H 99 H 87 Blood Pressure O2 Sat by Pulse 98 98 98 Oximetry 03/20/19 03/20/19 03/20/19 21:27 21:32 21:34 Pulse Rate 86 82 78 Blood Pressure 119/68 O2 Sat by Pulse 98 98 Oximetry 03/20/19 03/20/19 03/20/19 21:37 21:42 21:47 Pulse Rate 83 81 78 Blood Pressure O2 Sat by Pulse 97 98 98 Oximetry 03/20/19 03/20/19 03/20/19 21:48 21:52 21:57 Pulse Rate 85 85 77 Blood Pressure 120/71 O2 Sat by Pulse 99 98 Oximetry 03/20/19 03/20/19 03/20/19 22:02 22:07 22:12 Pulse Rate 73 74 72 Blood Pressure O2 Sat by Pulse 98 98 98 Oximetry 03/20/19 03/20/19 03/20/19 22:17 22:22 22:27 Pulse Rate 76 75 78 Blood Pressure O2 Sat by Pulse 98 97 97 Oximetry 03/20/19 03/20/19 03/20/19 22:32 22:37 22:42 Pulse Rate 74 73 77 Blood Pressure O2 Sat by Pulse 97 97 98 Oximetry 03/20/19 03/20/19 03/20/19 22:47 22:48 22:52 Pulse Rate 74 86 88 Blood Pressure O2 Sat by Pulse 96 94 99 Oximetry 03/20/19 03/20/19 03/20/19 22:57 23:02 23:07 Pulse Rate 84 86 93 H Blood Pressure O2 Sat by Pulse 98 98 98 Oximetry 03/20/19 03/20/19 03/20/19 23:12 23:17 23:22 Pulse Rate 77 84 82 Blood Pressure O2 Sat by Pulse 99 98 99 Oximetry 03/20/19 03/20/19 03/20/19 23:27 23:32 23:37 Pulse Rate 82 85 80 Blood Pressure O2 Sat by Pulse 99 99 99 Oximetry 03/20/19 03/20/19 03/20/19 23:39 23:42 23:47 Pulse Rate 74 75 74 Blood Pressure 112/56 O2 Sat by Pulse 99 99 Oximetry 03/20/19 03/20/19 03/20/19 23:50 23:56 23:57 Pulse Rate 157 H 124 H 64 Blood Pressure O2 Sat by Pulse 60 L 82 L 100 Oximetry 03/21/19 03/21/19 03/21/19 00:02 00:03 00:08 Pulse Rate 77 80 80 Blood Pressure 112/65 107/65 O2 Sat by Pulse 84 98 98 Oximetry 03/21/19 03/21/19 03/21/19 00:13 00:18 00:19 Pulse Rate 74 69 70 Blood Pressure 115/65 O2 Sat by Pulse 98 98 Oximetry 03/21/19 03/21/19 03/21/19 00:23 00:28 00:33 Pulse Rate 73 70 72 Blood Pressure 117/70 O2 Sat by Pulse 99 99 98 Oximetry 03/21/19 03/21/19 03/21/19 00:38 00:43 00:48 Pulse Rate 75 74 73 Blood Pressure 122/75 O2 Sat by Pulse 98 99 99 Oximetry 03/21/19 03/21/19 03/21/19 00:53 00:58 01:03 Pulse Rate 74 72 73 Blood Pressure 119/71 O2 Sat by Pulse 99 99 98 Oximetry 03/21/19 03/21/19 03/21/19 01:08 01:13 01:18 Pulse Rate 73 79 70 Blood Pressure O2 Sat by Pulse 99 99 100 Oximetry 03/21/19 03/21/19 03/21/19 01:23 01:28 01:33 Pulse Rate 78 68 81 Blood Pressure O2 Sat by Pulse 98 98 98 Oximetry 03/21/19 03/21/19 03/21/19 01:38 01:42 01:43 Pulse Rate 69 76 70 Blood Pressure O2 Sat by Pulse 98 94 99 Oximetry 03/21/19 03/21/19 03/21/19 01:48 01:53 01:58 Pulse Rate 89 72 75 Blood Pressure O2 Sat by Pulse 98 99 99 Oximetry 03/21/19 03/21/19 03/21/19 02:03 02:08 02:13 Pulse Rate 87 64 73 Blood Pressure O2 Sat by Pulse 99 99 100 Oximetry 03/21/19 03/21/19 03/21/19 02:18 02:23 02:28 Pulse Rate 71 73 78 Blood Pressure O2 Sat by Pulse 100 100 99 Oximetry 03/21/19 03/21/19 03/21/19 02:33 02:38 02:43 Pulse Rate 73 76 68 Blood Pressure O2 Sat by Pulse 99 100 97 Oximetry 03/21/19 03/21/19 03/21/19 02:48 03:03 03:08 Pulse Rate 88 87 79 Blood Pressure O2 Sat by Pulse 100 99 99 Oximetry 03/21/19 03/21/19 03/21/19 03:13 03:18 03:23 Pulse Rate 73 73 81 Blood Pressure O2 Sat by Pulse 99 99 99 Oximetry 03/21/19 03/21/19 03/21/19 03:28 03:33 03:38 Pulse Rate 72 76 72 Blood Pressure O2 Sat by Pulse 98 99 99 Oximetry 03/21/19 03/21/19 03/21/19 03:43 03:48 03:53 Pulse Rate 79 72 68 Blood Pressure O2 Sat by Pulse 99 100 99 Oximetry 03/21/19 03/21/19 03/21/19 03:58 04:03 04:08 Pulse Rate 72 72 72 Blood Pressure O2 Sat by Pulse 98 99 100 Oximetry 03/21/19 03/21/19 03/21/19 04:13 04:18 04:23 Pulse Rate 71 75 73 Blood Pressure O2 Sat by Pulse 99 98 99 Oximetry 03/21/19 03/21/19 03/21/19 04:28 04:33 04:38 Pulse Rate 76 76 72 Blood Pressure O2 Sat by Pulse 99 99 100 Oximetry 03/21/19 03/21/19 03/21/19 04:43 04:48 04:53 Pulse Rate 82 77 74 Blood Pressure O2 Sat by Pulse 98 99 100 Oximetry 03/21/19 03/21/19 03/21/19 04:58 05:03 05:08 Pulse Rate 75 73 72 Blood Pressure O2 Sat by Pulse 99 100 98 Oximetry 03/21/19 03/21/19 03/21/19 05:13 05:18 05:23 Pulse Rate 76 72 95 H Blood Pressure O2 Sat by Pulse 100 100 100 Oximetry 03/21/19 03/21/19 03/21/19 05:28 05:33 05:38 Pulse Rate 68 70 72 Blood Pressure O2 Sat by Pulse 99 100 99 Oximetry 03/21/19 03/21/19 03/21/19 05:43 05:52 05:57 Pulse Rate 89 164 H 77 Blood Pressure O2 Sat by Pulse 100 88 98 Oximetry 03/21/19 03/21/19 03/21/19 06:02 06:07 06:12 Pulse Rate 65 75 75 Blood Pressure O2 Sat by Pulse 99 99 99 Oximetry 03/21/19 03/21/19 03/21/19 06:17 06:22 06:27 Pulse Rate 88 82 76 Blood Pressure O2 Sat by Pulse 99 99 99 Oximetry 03/21/19 03/21/19 03/21/19 06:32 06:37 06:42 Pulse Rate 80 80 82 Blood Pressure O2 Sat by Pulse 99 98 99 Oximetry 01/08/0303/21/19 03/21/19 06:47 06:52 06:57 Pulse Rate 80 92 H 83 Blood Pressure O2 Sat by Pulse 98 99 99 Oximetry 03/21/19 03/21/19 03/21/19 07:02 07:07 07:12 Pulse Rate 81 74 71 Blood Pressure O2 Sat by Pulse 99 99 98 Oximetry 03/21/19 03/21/19 03/21/19 07:17 07:22 07:27 Pulse Rate 90 70 82 Blood Pressure O2 Sat by Pulse 98 99 98 Oximetry 03/21/19 07:29 Pulse Rate 71 Blood Pressure 111/66 O2 Sat by Pulse Oximetry - Exam Uterus: Present: normal, fundal height above umbilicus. Absent: tenderness FHR: category 1 Uterine Contraction Monitor Mode: External Cervical Dilatation: 5 Cervical Effacement Percentage: 50 station: -2 Uterine Contraction Frequency (min): Irregular, mild Uterine Contraction Intensity: Mild Extremities: normal - Labs Labs: Abnormal Labs 03/19/19 19:00 Lymph % (Auto) 37.9 H Laboratory Results - last 24 hr 03/20/19 03/20/19 03/20/19 14:33 14:33 14:33 Hemoglobin A1c 5.2 Syphilis IgG Antibody Non-reactive Blood Type O POSITIVE Antibody Screen Negative
[2019-03-21] MEDS: fentaNYL 100 MCG/2 ML INJ IV PRN ×2 (12:59→15:47)
--- NOTE | 2019-03-21 15:02 | Event Note ---
Date: 03/21/19 SVE /-2. Category 1 heart rate tracing. Regular contractions every 2-3 minutes. Uterus palpates soft between contractions. VSS. Patient comfortable; denies pain.
--- NOTE | 2019-03-21 17:25 | Event Note ---
Date: 03/21/19 SVE 780/-1. AROM at 16:50 with moderate amount of clear fluid. Category 1 heart rate tracing. Contractions every 3-4 minutes; uterus palpates soft between contractions. VSS.
[2019-03-21] MEDS ORDERED: SODIUM CHLORIDE P/F VIAL 10 ML 10 ML ONE (17:34)
[2019-03-21] MEDS ORDERED: DEXMEDETOMIDINE 200 MCG/2 ML VIAL IV ONE (17:35)
[2019-03-21] MEDS ORDERED: ePHEDrine SULFATE 50 MG/1 ML INJ IV PRN (18:05)
[2019-03-21] MEDS ORDERED: NALOXONE 2 MG/2 ML INJ IV PRN (18:05)
--- NOTE | 2019-03-21 18:07 | Anesthesia Consultation ---
Anesthesia Consult and Med Hx Date of service: 03/21/19 - Airway Anesthetic Teeth Evaluation: Good ROM Head & Neck: Adequate Mental/Hyoid Distance: Adequate Mallampati Class: Class II Intubation Access Assessment: Probably Good - Pulmonary Exam CTA: Yes - Cardiac Exam Cardiac Exam: RRR - Pre-Operative Health Status ASA Pre-Surgery Classification: ASA2 Proposed Anesthetic Plan: Epidural - Pulmonary Hx Asthma: No COPD: No Hx Pneumonia: No - Cardiovascular System Hx Hypertension: No - Central Nervous System Hx Seizures: No Hx Psychiatric Problems: No - Endocrine Hx Renal Disease: No Hx End Stage Renal Disease: No Hx Hypothyroidism: No Hx Hyperthyroidism: No - Hematic Hx Anemia: No Hx Sickle Cell Disease: No - Other Systems Hx Alcohol Use: No
[2019-03-21] MEDS ORDERED: MAGNESIUM HYDROXIDE (MOM) ORAL LIQD UDC PO PRN (18:59)
[2019-03-21] MEDS ORDERED: LANOLIN/ZINC/DIMETHICONE (LANSINOH) 7 GM TP PRN (18:59)
[2019-03-21] MEDS ORDERED: diphenhydrAMINE 25 MG CAP PO PRN (18:59)
[2019-03-21] MEDS ORDERED: WITCH HAZEL/ GLYCERIN PAD TP PRN (18:59)
[2019-03-21] MEDS ORDERED: fentaNYL-BUPIV 2 MCG/ML-0.125% 200 MCG/100 ML BAG EPIDURAL SCH (19:00)
--- NOTE | 2019-03-21 19:14 | Procedure Note ---
OB Delivery Note - Delivery Date of Delivery: 03/21/19 Surgeon: MARISOL VIDALES Estimated blood loss: other (150 cc) - Vaginal Delivery presentation: vertex Delivery position: OA Intrapartum events: labor-<37 weeks Delivery induction: none Delivery augmentation: rupture of membranes Delivery monitor: external FHT, external uterine Route of delivery: Delivery placenta: spontaneous Delivery cord: 3 umbilical vessels, other (short cord) Delivery laceration: none Anesthesia: epidural Delivery comments: Spontaneous vaginal delivery at 18:47 of liveborn male infant weighing 2.22 kg over intact perineum with apgars of 8/9. Baby's head, shoulders, and body delivered atraumatically; short cord noted; cord also wrapped around baby's body. 3 vessel cord double clamped and cut after 30 seconds. Baby taken to radiant warmer for stimulation and suctioning. Spontaneous cry and respirations. Cord blood obtained. Spontaneous delivery of intact placenta and membranes by richard mechanism at 18:49. EBL 150 cc. Pitocin to IV fluids after delivery of placenta. Fundus firm and midline. No lacerations noted. Vaginal sweep negative. Sponge count correct. Mother and baby stable.
[2019-03-21] MEDS ORDERED: IBUPROFEN 600 MG TAB PO SCH (20:00)
[2019-03-21] MEDS: DOCUSATE SODIUM 100 MG CAP PO SCH (22:24)
[2019-03-21] MEDS: HYDROcodone/ACETAMINOPHEN 5-325 MG TAB PO PRN (22:24)
--- NOTE | 2019-03-22 06:24 | Event Note ---
Date: 03/22/19 Late entry for 03/21/2019: Patient has heart murmur heard on exam yesterday. Patient denies any history of heart murmur. She denies shortness of breath, fatigue, palpitations, or chest pain. She denies leg pain. She had brief episode of chest pain 2 days ago after drinking a large cup of sweet tea; she states the chest pain improved after administration of Pepcid and she denies any further symptoms. Patient states she wants to see cardiology as an outpatient for evaluation of heart murmur. Advised patient re: possible etiologies and need to be evaluated by exhauster and warning signs.
[2019-03-22 08:27] LABS: Hematocrit 31.9 % (30.3-42.9); Hemoglobin 10.9 gm/dl (10.1-14.3)
[2019-03-22] MEDS: PRENATAL VIT27-FE FUMARATE-FOLIC ACID VIT TAB PO SCH (09:37)
[2019-03-22] MEDS: DOCUSATE SODIUM 100 MG CAP PO SCH ×2 (09:37→22:01)
[2019-03-22] MEDS: HYDROcodone/ACETAMINOPHEN 5-325 MG TAB PO PRN (09:38)
--- NOTE | 2019-03-22 10:09 | Progress Note ---
Assessment and Plan - Patient Problems (1) Single live Current Visit: Yes Status: Acute (2) delivery Current Visit: Yes Status: Acute (3) Status post normal vaginal delivery Current Visit: Yes Status: Acute Plan to address problem: PPD 1 - stable Continue routine orders Anticipate discharge in 24-48 hours Subjective - Subjective Principal diagnosis: at 35 2/7 weeks gestation Interval history: see H&P, Event Notes, OB Progress Note and OB Delivery Procedure Note Patient reports: appetite normal, voiding normally, pain well controlled, ambulating normally, no dizzy ambulation [place]: in NICU Objective - Vital Signs Latest vital signs: Vital Signs Temp Pulse Resp BP Pulse Ox 03/22/19 07:39 97.9 F 63 16 124/79 99 03/22/19 04:38 98.0 F 65 18 120/61 97 03/21/19 20:34 97.6 F 03/21/19 20:16 77 89 03/21/19 20:13 92 H 83 L 03/21/19 20:10 66 119/70 97 03/21/19 20:05 64 98 03/21/19 20:00 69 99 03/21/19 19:55 62 120/69 99 03/21/19 19:50 69 98 03/21/19 19:45 73 99 03/21/19 19:40 73 116/68 99 03/21/19 19:35 69 99 03/21/19 19:30 67 99 03/21/19 19:25 77 121/80 98 03/21/19 19:20 71 97 03/21/19 19:15 69 97 03/21/19 19:10 72 119/72 98 03/21/19 19:05 104 H 84 03/21/19 19:00 98.5 F 03/21/19 18:59 130 H 87 03/21/19 18:54 75 84 03/21/19 18:48 81 L 03/21/19 18:44 123 H 82 L 03/21/19 18:43 91 03/21/19 18:39 70 84 03/21/19 18:38 100 H 89 03/21/19 18:34 81 139/79 03/21/19 18:33 67 100 03/21/19 18:28 77 100 03/21/19 18:23 75 99 03/21/19 18:18 87 99 03/21/19 18:13 71 103/55 98 03/21/19 18:11 73 104/58 03/21/19 18:09 72 110/60 03/21/19 18:08 95 H 99 03/21/19 18:07 72 114/62 03/21/19 18:05 76 129/68 03/21/19 18:03 71 126/75 99 03/21/19 18:01 75 124/69 03/21/19 18:00 82 135/68 03/21/19 17:58 85 100 03/21/19 17:57 88 123/75 03/21/19 17:55 96 H 130/72 03/21/19 17:53 83 136/75 100 03/21/19 17:51 82 133/75 03/21/19 17:48 109 H 98 03/21/19 15:46 74 112/68 Intake and Output 03/21/19 03/22/19 03/22/19 23:59 07:59 15:59 Intake Total 120 Output Total 800 1250 Balance -680 -1250 Intake: Oral 120 Output: Urine 800 1250 Void 800 1250 Other: Total, Intake Amount 120 Total, Output Amount 800 450 # Voids Void 3 Estimated Blood Loss 150 - Exam Narrative Exam: heart murmur noted by Lucretia BARRETO this AM. Pt is currently asymptomatic and opts to f/u with Cardiology outpatient. Breasts: Present: normal Cardiovascular: Present: Regular rate Lungs: Present: Clear to auscultation, Normal air movement Abdomen: Present: normal appearance, soft Vulva: both: normal Uterus: Present: normal, firm, fundal height at umbilicus Extremities: Present: normal Comments: scant lochia
[2019-03-23] MEDS ORDERED: TETANUS,DIPH,PERTUSS(ACELL) VACCINE 0.5 ML SYRINGE IM ONE (06:00)
[2019-03-23 09:12] VITALS: BP 123/94
--- NOTE | 2019-03-23 09:46 | Post Anesthesia Evaluation ---
- Post Anesthesia Evaluation Patient Participated: Yes Airway Patent: Yes Stable Respiratory Function: Yes Nausea/Vomiting: No Temp > 96.8F: Yes Pain Manageable: Yes Adequeate Hydration: Yes Anesthesia Complications: No Block Receding Appropriately: Yes Patient on Ventilator: No
[2019-03-23] MEDS: DOCUSATE SODIUM 100 MG CAP PO SCH (10:36)
[2019-03-23] MEDS: PRENATAL VIT27-FE FUMARATE-FOLIC ACID VIT TAB PO SCH (10:37)
--- NOTE | 2019-03-23 10:42 | Discharge Summary ---
Providers - Providers Date of Admission: 03/19/19 18:00 Date of discharge: 03/23/19 Attending physician: PILO ORTIZ MD Primary care physician: PILO ORTIZ MD Hospitalization Reason for admission: IUP - , other (Severe Pre-eclampsia) Delivery: Episiotomy: none Laceration: none Other procedures: none complications: none Discharge diagnosis: other (Anemia), delivery Drift baby: male Hospital course: See admission H & P; OB delivery summary and PP progress notes Condition at discharge: Good Disposition: DC-01 TO HOME OR SELFCARE - Discharge Diagnoses (1) delivery Status: Acute (2) Anemia Status: Acute Qualifiers: Anemia type: other cause Other causes of anemia: acute posthemorrhagic Qualified Code(s): D62 - Acute posthemorrhagic anemia Plan - Provider Discharge Summary Activity: routine, no sex for 6 weeks, no heavy lifting 4 weeks, no strenuous exercise Diet: other (Iron rich diet) Instructions: routine Additional instructions: [] Smoking cessation referral if applicable(refer to patient education folder for contact #) [] Refer to [facility] Booklet Call your doctor immediately for: * Fever > 100.5 * Heavy vaginal bleeding ( >1 pad per hour) * Severe persistent headache * Shortness of breath * Reddened, hot, painful area to leg or breast * Continue daily oral iron supplementation as directed with OJ - Follow up plan Follow up: PILO ORTIZ MD [Primary Care Provider] - 6 Weeks
[2019-03-23] MEDS ORDERED: FERROUS SULFATE 325 MG TAB PO SCH (11:00)
[2019-03-23] MEDS ORDERED: FLU VACC QUAD 2019-20 (3 YR UP)/PF 60 MCG/0.5 ML SYRINGE IM ONE (12:00)
== END 2019-03-23 13:20 | disposition home or self-care (01) | DRG 775 ==
LOC: TRG 17:29 → OBSVTOIN 18:00 → TRG 18:00 → LD 18:00 → TRG 22:31 → OB 03-21 20:55
PROVIDERS: ADMIT Obstetrics & Gynecology; ATTEND Obstetrics & Gynecology
PROC: 10E0XZZ Delivery of Products of Conception, External Approach (ICD-10-PCS; principal; 2019-03-21)
PROC: 3E0R3BZ Introduction of Anesthetic Agent into Spinal Canal, Percutaneous Approach (ICD-10-PCS; 2019-03-21)
PROC: 00HU33Z Insertion of Infusion Device into Spinal Canal, Percutaneous Approach (ICD-10-PCS; 2019-03-21)
PROC: 3E0234Z Introduction of Serum, Toxoid and Vaccine into Muscle, Percutaneous Approach (ICD-10-PCS; 2019-03-23)
DX: O60.14X0 Preterm labor third trimester with preterm delivery third trimester, not applicable or unspecified (principal); Z3A.35 35 weeks gestation of pregnancy; Z37.0 Single live birth; F41.1 Generalized anxiety disorder; O99.344 Other mental disorders complicating childbirth; Z23 Encounter for immunization; O99.62 Diseases of the digestive system complicating childbirth; O14.14 Severe pre-eclampsia complicating childbirth; K21.9 Gastro-esophageal reflux disease without esophagitis; O90.81 Anemia of the puerperium; D62 Acute posthemorrhagic anemia
CPT/HCPCS: 36415; 76815; 81001; 83036; 85014; 85018; 85025; 86592; 86850; 86900; 86901; 88307; 90686; 90715; 93005; 93010; 96360; 96361; 96365; 96374; G0378; J0290; J2405; J2590; J3010; J3490; J7120

== ENCOUNTER 2020-07-12 07:07 | Emergency (ER) | payer SELFPAY ==
[2020-07-12] MEDS ORDERED: methylPREDNISolone Sod Succinate 125 MG/2 ML INJ IV ONE (07:12)
[2020-07-12] MEDS ORDERED: IPRATROPIUM 0.02% NEBU 2.5 ML IH ONE ×2 (07:12→09:11)
[2020-07-12] MEDS ORDERED: ALBUTEROL 2.5 MG/3 ML NEBU IH ONE ×2 (07:12→09:11)
[2020-07-12] MEDS ORDERED: MAGNESIUM SULFATE 2 GM/50 ML BAG IV ONE (07:59)
--- NOTE | 2020-07-12 08:02 | Emergency Department Report ---
HPI - General Chief Complaint: Adult Asthma Time Seen by Provider: 07/12/20 07:54 - HPI HPI: Room 2 Patient is a 34-year-old female present with chief complaint of shortness of breath. Patient states she developed shortness of breath and wheezing last night at approximately 19: 00. Patient states she use her inhaler but it has not helped. Patient states her symptoms feel consistent with previous asthma exacerbations. Patient admits to an occasional cough that is productive of sputum. Patient denies fever at home ED Past Medical Hx - Past Medical History Hx Hypertension: Yes Hx Asthma: Yes - Surgical History Additional Surgical History: 2 miscarriages in the past. Total of 7 pregnancies - Family History Family history: no significant - Social History Smoking Status: Never Smoker Substance Use Type: None (Denies illicit drug use) - Medications Home Medications: Home Medications Medication Instructions Recorded Confirmed Last Taken Type Tablet 1 tab PO DAILY 08/22/14 03/20/19 03/18/19 05:00 History 1 Albuterol Sulfate [Albuterol 0.63% 0.63 mg IH TID PRN #75 ml 07/12/20 Unknown Rx NEBS] Albuterol Sulfate [Proventil Hfa] 6.7 gm IH QID PRN #1 hfa.aer.ad 07/12/20 Unknown Rx Azithromycin [Zithromax Z-VIOLETA] 0 mg PO DAILY #6 tab 07/12/20 Unknown Rx Benzonatate [Tessalon Perles] 100 mg PO Q8HR #30 capsule 07/12/20 Unknown Rx Prednisone [predniSONE 10 mg 10 mg PO .TAPER #1 tab.ds.pk 07/12/20 Unknown Rx (6-Day Pack, 21 Tabs)] ED Review of Systems ROS: Stated complaint: DANII Other details as noted in HPI Constitutional: denies: fever Eyes: denies: eye pain ENT: denies: throat pain Respiratory: cough, shortness of breath Cardiovascular: denies: syncope Endocrine: no symptoms reported Gastrointestinal: denies: abdominal pain Genitourinary: denies: dysuria Musculoskeletal: denies: back pain Neurological: denies: headache Physical Exam - Physical Exam Vital Signs: Vital Signs 07/12/20 07/12/20 07:09 07:56 Pulse Rate 137 H 117 H Respiratory 37 H 40 H Rate Blood Pressure 167/132 O2 Sat by Pulse 91 100 Oximetry Physical Exam: GENERAL: The patient is well-developed well-nourished female lying on stretcher exhibiting increased work of breathing. [] HEENT: Normocephalic. Atraumatic. Extraocular motions are intact. Patient has moist mucous membranes. NECK: Supple. Trachea midline CHEST/LUNGS: Diffuse wheezing. There is accessory muscle use HEART/CARDIOVASCULAR: Regular. There is tachycardia. There is no gallop rub or murmur. ABDOMEN: Abdomen is soft, nontender. Patient has normal bowel sounds. There is no abdominal distention. SKIN: There is no rash. There is no edema. There is no diaphoresis. NEURO: The patient is awake, alert, and oriented. The patient is cooperative. The patient has no focal neurologic deficits. The patient has normal speech MUSCULOSKELETAL: There is no evidence of acute injury. ED Course Vital Signs 07/12/20 07/12/20 07:09 07:56 Pulse Rate 137 H 117 H Respiratory 37 H 40 H Rate Blood Pressure 167/132 O2 Sat by Pulse 91 100 Oximetry - Reevaluation(s) Reevaluation #1: 07/12/20 09:12 Patient states she feels improved. Still exhibiting slight expiratory wheezing. SPO2 improved to 96% on room air. Another neb ordered Reevaluation #2: 07/12/20 10:25 Patient states she feels improved chest has a persistent cough ED Medical Decision Making - Radiology Data Radiology results: report reviewed (chest xray), image reviewed (Chest x-ray) interpreted by me: Chest x-ray-no focal filtrate, no pneumothorax [facility] [address] [place] [address] XRay Report Signed Patient: DIANDRA EVANGELISTA MR#: [id number] : 1985 Acct:[id number] Age/Sex: 34 / F ADM Date: 07/12/20 Loc: ED Attending Dr: Ordering Physician: MARIANO DOUGLAS MD Date of Service: 07/12/20 Procedure(s): XR chest 1V ap Accession Number(s): [id number] cc: MARIANO DOUGLAS MD Fluoro Time In Minutes: CHEST 1 VIEW 07/12/2020 8:23 AM INDICATION / CLINICAL INFORMATION: Shortness of breath, wheezing, cough. COMPARISON: 02/19/08 FINDINGS: SUPPORT DEVICES: None. HEART / MEDIASTINUM: No significant abnormality. LUNGS / PLEURA: No significant pulmonary or pleural abnormality. No pneumothorax. ADDITIONAL FINDINGS: No significant additional findings. IMPRESSION: 1. No acute findings. Signer Name: Kilo Montez MD Signed: 07/12/2020 9:26 AM Workstation Name: [id number] Transcribed By: DT Dictated By: Alfredito Montez MD Electronically Authenticated By: Alfredito Montez MD Signed Date/Time: 07/12/20925 DD/ 4 TD/TT: Print Cancel - Differential Diagnosis Acute asthma exacerbation, pneumonia, bronchitis Critical care attestation.: If time is entered above; I have spent that time in minutes in the direct care of this critically ill patient, excluding procedure time. ED Disposition Clinical Impression: Acute asthma exacerbation, Acute bronchitis Disposition: TO HOME OR SELFCARE Is pt being admited?: No Does the pt Need Aspirin: No Condition: Stable Instructions: Acute Bronchitis (ED), Asthma, Adult, Cough, Adult, [id number] Additional Instructions: Return to the emergency department should you develop worsening symptoms, inability to tolerate food or liquids, high fever or any other concerns Prescriptions: Albuterol Sulfate [Albuterol 0.63% NEBS] 0.63 mg IH TID PRN #75 ml PRN Reason: Wheezing Prednisone [predniSONE 10 mg (6-Day Pack, 21 Tabs)] 10 mg PO .TAPER #1 tab.ds.pk Albuterol Sulfate [Proventil Hfa] 6.7 gm IH QID PRN #1 hfa.aer.ad PRN Reason: Wheezing Benzonatate [Tessalon Perles] 100 mg PO Q8HR #30 capsule Azithromycin [Zithromax Z-VIOLETA] 0 mg PO DAILY #6 tab Referrals: PRIMARY CARE, [Primary Care Provider] - 3-5 Days [facility] [Provider Group] - 3-5 Days Time of Disposition: :
[2020-07-12] MEDS ORDERED: BENZONATATE 100 MG CAP PO ONE (09:08)
--- NOTE | 2020-07-12 09:30 | XRay Report ---
CHEST 1 VIEW 07/12/2020 8:23 AM INDICATION / CLINICAL INFORMATION: Shortness of breath, wheezing, cough. COMPARISON: 02/19/08 FINDINGS: SUPPORT DEVICES: None. HEART / MEDIASTINUM: No significant abnormality. LUNGS / PLEURA: No significant pulmonary or pleural abnormality. No pneumothorax. ADDITIONAL FINDINGS: No significant additional findings. IMPRESSION: 1. No acute findings. Signer Name: Kilo Montez MD Signed: 07/12/2020 9:26 AM Workstation Name: [id number]
[2020-07-12 10:58] VITALS: BP 134/81
== END 2020-07-12 10:59 | disposition home or self-care (01) ==
LOC: ED 07:07
DX: J45.901 Unspecified asthma with (acute) exacerbation (principal); I10 Essential (primary) hypertension; Z79.899 Other long term (current) drug therapy
CPT/HCPCS: 71045; 96365; 96375; 99283; J2930; J3475

== ENCOUNTER 2020-07-29 12:38 | Emergency (ER) | payer SELFPAY ==
[2020-07-29 12:50] VITALS: BP 142/92
[2020-07-29] MEDS ORDERED: IPRATROPIUM 0.02% NEBU 2.5 ML IH ONE (13:07)
[2020-07-29] MEDS ORDERED: ALBUTEROL 2.5 MG/3 ML NEBU IH ONE (13:07)
[2020-07-29] MEDS ORDERED: methylPREDNISolone Sod Succinate 125 MG/2 ML INJ IM ONE (13:07)
--- NOTE | 2020-07-29 13:17 | Emergency Department Report ---
ED General Adult HPI - General Chief complaint: Adult Asthma Stated complaint: asthma Time Seen by Provider: 07/29/20 13:05 Source: patient Mode of arrival: Ambulatory Limitations: No Limitations - History of Present Illness Initial comments: 34-year-old female with recently diagnosed asthma presenting with chief complaint of cough and shortness of breath. The patient states she has a cough for about 1 week, runny nose, possibly a fever and states that over the past couple days she has become increasingly short of breath unrelieved by at home nebulized treatments. She denies vomiting but states she has had some diarrhea at times. Denies chest pain. Symptoms are moderate, nothing makes better or worse. - Related Data Home Medications Medication Instructions Recorded Confirmed Last Taken Tablet 1 tab PO DAILY 08/22/14 03/20/19 03/18/19 05:00 1 Previous Rx's Medication Instructions Recorded Last Taken Type Albuterol Sulfate [Albuterol 0.63% 0.63 mg IH TID PRN #75 ml 07/12/20 Unknown Rx NEBS] Benzonatate [Tessalon Perles] 100 mg PO Q8HR #30 capsule 07/12/20 Unknown Rx ALBUTEROL NEB's [Proventil 0.083% 2.5 mg IH QID PRN #25 neb 07/29/20 Unknown Rx NEBS] Albuterol Sulfate [Proventil Hfa] 6.7 gm IH QID PRN #1 hfa.aer.ad 07/29/20 Unkn own Rx Ipratropium [Atrovent NEB] 0.5 mg IH Q6HRT #75 ml 07/29/20 Unknown Rx Prednisone [predniSONE 10 mg 10 mg PO .TAPER #1 tab.ds.pk 07/29/20 Unknown Rx (6-Day Pack, 21 Tabs)] Allergies Allergy/AdvReac Type Severity Reaction Status Date / Time No Known Allergies Allergy Verified 07/12/20 07:12 ED Review of Systems ROS: Stated complaint: asthma Other details as noted in HPI Comment: All other systems reviewed and negative ED Past Medical Hx - Past Medical History Hx Hypertension: Yes Hx Congestive Heart Failure: No Hx Diabetes: No Hx Deep Vein Thrombosis: No Hx Renal Disease: No Hx Sickle Cell Disease: No Hx Seizures: No Hx Asthma: Yes Hx COPD: No Hx HIV: No - Surgical History Additional Surgical History: 2 miscarriages in the past. Total of 7 pregnancies - Social History Smoking Status: Never Smoker Substance Use Type: None - Medications Home Medications: Home Medications Medication Instructions Recorded Confirmed Last Taken Type Tablet 1 tab PO DAILY 08/22/14 03/20/19 03/18/19 05:00 History 1 Albuterol Sulfate [Albuterol 0.63% 0.63 mg IH TID PRN #75 ml 07/12/20 Unknown Rx NEBS] Benzonatate [Tessalon Perles] 100 mg PO Q8HR #30 capsule 07/12/20 Unknown Rx ALBUTEROL NEB's [Proventil 0.083% 2.5 mg IH QID PRN #25 neb 07/29/20 Unknown Rx NEBS] Albuterol Sulfate [Proventil Hfa] 6.7 gm IH QID PRN #1 hfa.aer.ad 07/29/20 Unknown Rx Ipratropium [Atrovent NEB] 0.5 mg IH Q6HRT #75 ml 07/29/20 Unknown Rx Prednisone [predniSONE 10 mg 10 mg PO .TAPER #1 tab.ds.pk 07/29/20 Unknown Rx (6-Day Pack, 21 Tabs)] ED Physical Exam - General Limitations: No Limitations General appearance: alert, in no apparent distress - Head Head exam: Present: atraumatic, normocephalic - Eye Eye exam: Present: normal appearance - ENT ENT exam: Present: mucous membranes moist - Neck Neck exam: Present: normal inspection - Respiratory Respiratory exam: Present: wheezes (Diffuse coarse expiratory wheezing). Absent: respiratory distress - Cardiovascular Cardiovascular Exam: Present: regular rate, normal rhythm. Absent: systolic murmur, diastolic murmur, rubs, gallop - GI/Abdominal GI/Abdominal exam: Present: soft, normal bowel sounds - Extremities Exam Extremities exam: Present: normal inspection - Back Exam Back exam: Present: normal inspection - Neurological Exam Neurological exam: Present: alert, oriented X3 - Psychiatric Psychiatric exam: Present: normal affect, normal mood - Skin Skin exam: Present: warm, dry, intact, normal color. Absent: rash ED Course Vital Signs 07/29/20 12:46 Temperature 99.0 F Pulse Rate 100 H Respiratory 22 Rate Blood Pressure 142/92 O2 Sat by Pulse 98 Oximetry ED Medical Decision Making - Radiology Data Radiology results: report reviewed Normal two-view chest - Medical Decision Making 34-year-old female presenting with cough for 1 week now with shortness of breath and wheezing over the past few days, no chest pain, questionable fever at home. On my exam nontoxic, no distress, normal heart sounds, lungs with coarse expiratory wheezing diffusely, no edema. Differentials include asthma bronchitis pneumonia. Chest x-ray pending. Patient given DuoNeb, Solu-Medrol IM. 1420 on reassessment after nebulizer treatment and IM steroids, patient feels much improved. Repeat lung exam reveals no significant wheezing. O2 saturation appropriate. Patient will be discharged on steroids, continue albuterol as needed, add ipratropium and follow-up with pulmonology. - Differential Diagnosis Asthma, pneumonia, bronchitis Critical care attestation.: If time is entered above; I have spent that time in minutes in the direct care of this critically ill patient, excluding procedure time. ED Disposition Clinical Impression: Reactive airway disease with wheezing Qualifiers: Asthma severity: mild Asthma persistence: intermittent Asthma complication type: with acute exacerbation Qualified Code(s): J45.21 - Mild intermittent asthma with (acute) exacerbation Disposition: TO HOME OR SELFCARE Is pt being admited?: No Condition: Good Instructions: Asthma, Adult Prescriptions: Ipratropium [Atrovent NEB] 0.5 mg IH Q6HRT #75 ml Prednisone [predniSONE 10 mg (6-Day Pack, 21 Tabs)] 10 mg PO .TAPER #1 tab.ds.pk ALBUTEROL NEB's [Proventil 0.083% NEBS] 2.5 mg IH QID PRN #25 neb PRN Reason: Wheezing Albuterol Sulfate [Proventil Hfa] 6.7 gm IH QID PRN #1 hfa.aer.ad PRN Reason: Wheezing Referrals: PRIMARY CARE, [Primary Care Provider] - 3-5 Days MARLENE PATEL MD [Staff Physician] - 3-5 Days Time of Disposition: 14:21
--- NOTE | 2020-07-29 13:39 | XRay Report ---
CHEST 2 VIEWS INDICATION / CLINICAL INFORMATION: SOB. COMPARISON: 07/12/2020 FINDINGS: SUPPORT DEVICES: None. HEART / MEDIASTINUM: Stable. LUNGS / PLEURA: No significant pulmonary or pleural abnormality. No pneumothorax. ADDITIONAL FINDINGS: No significant additional findings. IMPRESSION: 1. No acute findings. No significant interval change since 07/12/2020. Signer Name: Jarvis Raymundo MD Signed: 07/29/2020 1:35 PM Workstation Name: [email or web address] [id number]
== END 2020-07-29 14:32 | disposition home or self-care (01) ==
LOC: ED 12:38
DX: J45.909 Unspecified asthma, uncomplicated (principal); I10 Essential (primary) hypertension; Z98.890 Other specified postprocedural states; Z79.899 Other long term (current) drug therapy
CPT/HCPCS: 71046; 94640; 96372; 99283; J2930

== ENCOUNTER 2020-08-19 10:46 | Emergency (ER) | payer SELFPAY ==
[2020-08-19] MEDS ORDERED: ALBUTEROL 2.5 MG/3 ML NEBU IH ONE (11:11)
[2020-08-19] MEDS ORDERED: IPRATROPIUM 0.02% NEBU 2.5 ML IH ONE (11:12)
[2020-08-19] MEDS ORDERED: methylPREDNISolone Sod Succinate 125 MG/2 ML INJ IV ONE (11:25)
[2020-08-19] MEDS ORDERED: IPRATROPIUM/ALBUTEROL SULFATE 3 ML AMPUL.NEB IH ONE (11:25)
--- NOTE | 2020-08-19 11:27 | Emergency Department Report ---
ED Shortness of Breath HPI - General Chief Complaint: Adult Asthma Stated Complaint: ASTHMA Time Seen by Provider: 08/19/20 11:17 Source: patient Mode of arrival: Ambulatory Limitations: No Limitations - History of Present Illness Initial Comments: 34-year-old female with history of asthma states exacerbated for the last 2 weeks. This is her first medical contact. She states she has an inhaler but her breathing machine is broken. She is not on oral steroids. She does states she has a cough that is nonproductive. She had a chest x-ray in June and in July both of which were negative. She seems to be relying on the emergency department for her primary care. She does present ambulatory with bilateral wheezing. She denies any recent fever. She states she has not had the Covid vaccine. Complaint: "asthma attack" -: Gradual, week(s) Radiation: other (No pain complaint) Improves With: nothing Worsens With: nothing Known History Of: asthma Context: other (Nebulizer broken) Associated Symptoms: denies other symptoms, cough Treatments Prior to Arrival: none - Related Data Home Oxygen Therapy: No Home Medications Medication Instructions Recorded Confirmed Last Taken Tablet 1 tab PO DAILY 08/22/14 03/20/19 03/18/19 05:00 1 Previous Rx's Medication Instructions Recorded Last Taken Type Albuterol Sulfate [Albuterol 0.63% 0.63 mg IH TID PRN #75 ml 07/12/20 Unknown Rx NEBS] Albuterol Sulfate [Proventil Hfa] 6.7 gm IH QID PRN #1 hfa.aer.ad 07/29/20 Unknown Rx Ipratropium [Atrovent NEB] 0.5 mg IH Q6HRT #75 ml 07/29/20 Unknown Rx guaiFENesin/CODEINE [Robitussin AC] 5 - 10 ml PO Q6H #120 ml 07/29/20 Unknown Rx ALBUTEROL NEB's [Proventil 0.083% 2.5 mg IH QID PRN #90 neb 08/19/20 Unknown Rx NEBS] Benzonatate [Tessalon Perles] 100 mg PO Q8HR #10 capsule 08/19/20 Unknown Rx Nebulizer Accessories [Adult 1 each MC Q6H #1 each 08/19/20 Unknown Rx Aerosol Mask] Nebulizer Accessories [Aeroneb Go] 1 each MC Q6H #1 each 08/19/20 Unknown Rx Nebulizer Accessories [Mouthpiece] 1 each Q6H #1 each 08/19/20 Unknown Rx Prednisone [predniSONE 10 mg 10 mg PO .TAPER #1 tab.ds.pk 08/19/20 Unknown Rx (6-Day Pack, 21 Tabs)] Allergies Allergy/AdvReac Type Severity Reaction Status Date / Time No Known Allergies Allergy Verified 07/12/20 07:12 ED Review of Systems ROS: Stated complaint: ASTHMA Other details as noted in HPI Constitutional: denies: chills, fever Eyes: denies: eye pain, vision change ENT: denies: ear pain, throat pain Respiratory: see HPI, cough, wheezing Cardiovascular: denies: chest pain, palpitations Endocrine: no symptoms reported Gastrointestinal: denies: abdominal pain, nausea, diarrhea Genitourinary: denies: urgency, dysuria, discharge Musculoskeletal: denies: back pain, arthralgia Skin: denies: rash, lesions Neurological: denies: headache, weakness, paresthesias Psychiatric: denies: anxiety, depression Hematological/Lymphatic: denies: easy bleeding, easy bruising ED Past Medical Hx - Past Medical History Previous Medical History?: Yes Hx Hypertension: Yes Hx Congestive Heart Failure: No Hx Diabetes: No Hx Deep Vein Thrombosis: No Hx Renal Disease: No Hx Sickle Cell Disease: No Hx Seizures: No Hx Asthma: Yes Hx COPD: No Hx HIV: No - Surgical History Past Surgical History?: Yes Additional Surgical History: 2 miscarriages in the past. Total of 7 pregnancies - Social History Smoking Status: Never Smoker Substance Use Type: Alcohol - Medications Home Medications: Home Medications Medication Instructions Recorded Confirmed Last Taken Type Tablet 1 tab PO DAILY 08/22/14 03/20/19 03/18/19 05:00 History 1 Albuterol Sulfate [Albuterol 0.63% 0.63 mg IH TID PRN #75 ml 07/12/20 Unknown Rx NEBS] Albuterol Sulfate [Proventil Hfa] 6.7 gm IH QID PRN #1 hfa.aer.ad 07/29/20 Unknown Rx Ipratropium [Atrovent NEB] 0.5 mg IH Q6HRT #75 ml 07/29/20 Unknown Rx guaiFENesin/CODEINE [Robitussin AC] 5 - 10 ml PO Q6H #120 ml 07/29/20 Unknown Rx ALBUTEROL NEB's [Proventil 0.083% 2.5 mg IH QID PRN #90 neb 08/19/20 Unknown Rx NEBS] Benzonatate [Tessalon Perles] 100 mg PO Q8HR #10 capsule 08/19/20 Unknown Rx Nebulizer Accessories [Adult 1 each MC Q6H #1 each 08/19/20 Unknown Rx Aerosol Mask] Nebulizer Accessories [Aeroneb Go] 1 each MC Q6H #1 each 08/19/20 Unknown Rx Nebulizer Accessories [Mouthpiece] 1 each MC Q6H #1 each 08/19/20 Unknown Rx Prednisone [predniSONE 10 mg 10 mg PO .TAPER #1 tab.ds.pk 08/19/20 Unknown Rx (6-Day Pack, 21 Tabs)] ED Physical Exam - General Limitations: No Limitations General appearance: alert, in no apparent distress - Head Head exam: Present: atraumatic, normocephalic - Eye Eye exam: Present: normal appearance. Absent: scleral icterus - ENT ENT exam: Present: mucous membranes moist - Neck Neck exam: Present: normal inspection - Respiratory Respiratory exam: Present: wheezes (Bilaterally). Absent: respiratory distress - Cardiovascular Cardiovascular Exam: Present: normal rhythm, tachycardia (Mildly). Absent: systolic murmur, diastolic murmur, rubs, gallop - GI/Abdominal GI/Abdominal exam: Present: soft, normal bowel sounds. Absent: distended, tenderness, guarding, rebound, rigid - Extremities Exam Extremities exam: Present: normal inspection. Absent: pedal edema, joint swelling, calf tenderness - Back Exam Back exam: Present: normal inspection - Neurological Exam Neurological exam: Present: alert, oriented X3, CN II-XII intact. Absent: motor sensory deficit - Psychiatric Psychiatric exam: Present: normal affect, normal mood - Skin Skin exam: Present: warm, dry, intact, normal color. Absent: rash ED Course Vital Signs 08/19/20 08/19/20 08/19/20 10:57 11:10 11:15 Temperature 98.8 F Pulse Rate 112 H 113 H Pulse Rate [ Bilateral Throughout] Respiratory 24 29 H Rate Respiratory Rate [Bilateral Throughout] Blood Pressure 144/99 O2 Sat by Pulse 96 96 96 Oximetry 08/19/20 08/19/2008/19/21 11:18 11:30 11:35 Temperature Pulse Rate 93 H Pulse Rate [ 103 H 106 H Bilateral Throughout] Respiratory 16 Rate Respiratory 20 18 Rate [Bilateral Throughout] Blood Pressure 142/82 O2 Sat by Pulse 100 Oximetry 08/19/20 08/19/20 08/19/20 12:00 12:30 13:00 Temperature Pulse Rate 115 H 110 H 103 H Pulse Rate [ Bilateral Throughout] Respiratory 20 20 20 Rate Respiratory Rate [Bilateral Throughout] Blood Pressure 149/87 142/87 150/95 O2 Sat by Pulse 95 94 95 Oximetry 08/19/20 08/19/20 08/19/20 13:04 13:30 14:00 Temperature Pulse Rate 126 H 118 H Pulse Rate [ 118 H Bilateral Throughout] Respiratory 20 19 Rate Respiratory 18 Rate [Bilateral Throughout] Blood Pressure 139/81 148/95 O2 Sat by Pulse 95 94 Oximetry 08/19/20 08/19/20 08/19/20 14:30 15:00 15:30 Temperature Pulse Rate 117 H 120 H 119 H Pulse Rate [ Bilateral Throughout] Respiratory 21 22 20 Rate Respiratory Rate [Bilateral Throughout] Blood Pressure 143/90 141/91 145/88 O2 Sat by Pulse 96 92 96 Oximetry 08/19/20 16:00 Temperature Pulse Rate 130 H Pulse Rate [ Bilateral Throughout] Respiratory 21 Rate Respiratory Rate [Bilateral Throughout] Blood Pressure 145/86 O2 Sat by Pulse 95 Oximetry - Reevaluation(s) Reevaluation #1: Improving with nebs. 08/19/20 11:27 Reevaluation #2: Patient stated that she was ready to go. However on exam she was still a bit tight. Magnesium of fluids and Xopenex has been ordered. 08/19/20 12:49 Reevaluation #3: Patient with resting saturation of 94. It does come up upon conversation. Patient is on the control pill. She is quite tachycardic. She states she has been coughing but chest clear or no fluid. I decided to proceed with a CTA of the chest. 08/19/20 14:03 ED Medical Decision Making - Lab Data Result diagrams: 08/19/20 16:46 08/19/20 16:46 Laboratory Results - last 24 hr 08/19/20 16:46 WBC 7.4 RBC 4.55 Hgb 14.4 H Hct 41.9 MCV 92 MCH 32 MCHC 34 RDW 14.3 Plt Count 231 Seg Neutrophils % Patient Coordinator Front Desk Laboratory Results - last 24 hr 08/19/20 16:46 WBC 7.4 RBC 4.55 Hgb 14.4 H Hct 41.9 MCV 92 MCH 32 MCHC 34 RDW 14.3 Plt Count 231 Seg Neutrophils % Patient Coordinator Front Desk - Radiology Data Radiology results: report reviewed IMPRESSION: 1. No CT evidence for pulmonary embolism. 2. No acute findings. 3. 1.9 cm incidental right thyroid nodule. Follow up or conditions as below. INCIDENTAL THYROID NODULE RECOMMENDATION RECOMMENDATION: Dedicated thyroid ultrasound. Nonpalpable nodules detected on US or other anatomic imaging studies are termed incidentally discovered nodules or incidentalomas. Nonpalpable nodules have the same risk of malignancy as palpable nodules with the same size. Generally, only nodules >1 cm should be evaluated, since they have a greater potential to be clinically significant cancers. (KATHRIN, 2009). Critical care attestation.: If time is entered above; I have spent that time in minutes in the direct care of this critically ill patient, excluding procedure time. ED Disposition Clinical Impression: Acute severe exacerbation of asthma, Thyroid nodule Disposition: DC-01 TO HOME OR SELFCARE Is pt being admited?: No Does the pt Need Aspirin: No Condition: Stable Instructions: Asthma, Adult, Thyroid Nodule Additional Instructions: Follow-up with [facility] on your asthma exacerbation and care as well as your thyroid nodule. Rx as directed return to the emergency department should you have any worsening symptoms. Prescriptions: Nebulizer Accessories [Adult Aerosol Mask] 1 each MC Q6H #1 each Nebulizer Accessories [Aeroneb Go] 1 each MC Q6H #1 each Nebulizer Accessories [Mouthpiece] 1 each MC Q6H #1 each Prednisone [predniSONE 10 mg (6-Day Pack, 21 Tabs)] 10 mg PO .TAPER #1 tab.ds.pk ALBUTEROL NEB's [Proventil 0.083% NEBS] 2.5 mg IH QID PRN #90 neb PRN Reason: Wheezing Benzonatate [Tessalon Perles] 100 mg PO Q8HR #10 capsule Referrals: PRIMARY CARE, [Primary Care Provider] - 3-5 Days [facility] [Provider Group] - 2-3 Days
[2020-08-19] MEDS ORDERED: LEVALBUTEROL 0.63 MG/3 ML NEBU IH ONE (12:47)
[2020-08-19] MEDS ORDERED: MAGNESIUM SULFATE 2 GM/50 ML BAG IV ONE (12:47)
[2020-08-19] MEDS ORDERED: SODIUM CHLORIDE 0.9% 1000 ML 1,000 ML IV ONE (12:48)
[2020-08-19 17:09] LABS: Hematocrit 41.9 % (30.3-42.9); Hemoglobin 14.4 gm/dl (10.1-14.3); Mean Corpuscular HGB Conc 34 % (30-34); Mean Corpuscular Volume 92 fl (79-97); Platelet Count 231 K/mm3 (140-440); Red Blood Count 4.55 M/mm3 (3.65-5.03); Red Cell Distribution Width 14.3 % (13.2-15.2)
--- NOTE | 2020-08-19 17:12 | Cat Scan Report ---
CTA CHEST WITH CONTRAST INDICATION / CLINICAL INFORMATION: Tachycardia, dyspnea, cough on BCP. TECHNIQUE: Axial CT images were obtained through the chest after injection of IV contrast. 3 plane MIP and/or 3D reconstructions were produced. All CT scans at this location are performed using CT dose reduction f or ALARA by means of automated exposure control. COMPARISON: Prior chest radiograph 07/29/2020. No prior CTA chest. FINDINGS: PULMONARY ARTERIES: No pulmonary emboli. THORACIC AORTA: No significant abnormality. HEART: No significant abnormality. CORONARY ARTERIES: No significant calcification. MEDIASTINUM / EMMA: No significant abnormality. PLEURA: No pleural effusion. No pneumothorax. LUNGS: No acute air space or interstitial disease. ADDITIONAL FINDINGS: Hypoattenuating nodule of the right thyroid lobe measures 1.9 cm. UPPER ABDOMEN: No acute findings. SKELETAL STRUCTURES: No significant osseous abnormality. IMPRESSION: 1. No CT evidence for pulmonary embolism. 2. No acute findings. 3. 1.9 cm incidental right thyroid nodule. Follow up or conditions as below. INCIDENTAL THYROID NODULE RECOMMENDATION RECOMMENDATION: Dedicated thyroid ultrasound. Nonpalpable nodules detected on US or other anatomic imaging studies are termed incidentally discover ed nodules or incidentalomas. Nonpalpable nodules have the same risk of malignancy as palpable nodule s with the same size. Generally, only nodules >1 cm should be evaluated, since they have a greater po tential to be clinically significant cancers. (KATHRIN, 2009). Follow up for incidental thyroid nodules <1 cm is not recommended. Diagnostic thyroid ultrasound is recommended only if the patient meets the following criteria: (1) < 35 years of age with normal life expectancy and nodule >= 1 cm. (2) >= 35 years of age with normal life expectancy and nodule >= 1.5 cm. ACR Ultrasound for incidental thyroid nodules: [email or web address] Signer Name: Jarvis Raymundo MD Signed: 08/19/2020 5:07 PM Workstation Name: [id number]
[2020-08-19 17:19] LABS: Blood Urea Nitrogen 7 mg/dL (7-17); Calcium 8.1 mg/dL (8.4-10.2); Hemolysis Index 9
[2020-08-19 17:34] LABS: BUN/Creatinine Ratio 10
[2020-08-19 18:29] VITALS: BP 121/73
[2020-08-19 18:48] LABS: Anisocytosis 1+; Platelet Estimate Consistent w Auto; Total Cells Counted 100
== END 2020-08-19 18:28 | disposition home or self-care (01) ==
LOC: ED 10:46
DX: J45.901 Unspecified asthma with (acute) exacerbation (principal); E04.1 Nontoxic single thyroid nodule; I10 Essential (primary) hypertension; Z72.89 Other problems related to lifestyle; Z79.899 Other long term (current) drug therapy
CPT/HCPCS: 36415; 71275; 80048; 85007; 85025; 94640; 96365; 96375; 99285; J2930; J3475; J7030; Q9967; 94644

== ENCOUNTER 2020-09-09 14:29 | Emergency (ER) | payer MEDICAID ==
[2020-09-09] MEDS ORDERED: IPRATROPIUM 0.02% NEBU 2.5 ML IH ONE (15:21)
[2020-09-09] MEDS ORDERED: dexAMETHasone 20 MG/5 ML VIAL IM ONE ×2 (15:21→18:02)
[2020-09-09] MEDS ORDERED: ALBUTEROL 2.5 MG/3 ML NEBU IH ONE (15:21)
--- NOTE | 2020-09-09 15:24 | Emergency Department Report ---
ED Asthma HPI - General Chief Complaint: Dyspnea/Respdistress Stated Complaint: SOB/ASTHMA Time Seen by Provider: 09/09/20 15:20 Source: patient Mode of arrival: Ambulatory Limitations: No Limitations - History of Present Illness Initial Comments: 34-year-old -[place] female whose had multiple ER visits for asthma exacerbation. Patient comes in today reporting shortness of breath x7 days. She states her albuterol inhaler letter is not helping. She admits to cough. And difficulty sleeping as she is short of breath and coughing. MD Complaint: shortness of breath Onset/Timin -: days(s) Asthma History: history of frequent attac, history of prior ED visit Severity: moderate - Related Data Home Medications Medication Instructions Recorded Confirmed Last Taken Tablet 1 tab PO DAILY 08/22/14 03/20/19 03/18/19 05:00 1 Previous Rx's Medication Instructions Recorded Last Taken Type Albuterol Sulfate [Albuterol 0.63% 0.63 mg IH TID PRN #75 ml 07/12/20 Unknown Rx NEBS] Albuterol Sulfate [Proventil Hfa] 6.7 gm IH QID PRN #1 hfa.aer.ad 07/29/20 Unknown Rx Ipratropium [Atrovent NEB] 0.5 mg IH Q6HRT #75 ml 07/29/20 Unknown Rx guaiFENesin/CODEINE [Robitussin AC] 5 - 10 ml PO Q6H #120 ml 07/29/20 Unknown Rx ALBUTEROL NEB's [Proventil 0.083% 2.5 mg IH QID PRN #90 neb 08/19/20 Unknown Rx NEBS] Benzonatate [Tessalon Perles] 100 mg PO Q8HR #10 capsule 08/19/20 Unknown Rx Nebulizer Accessories [Adult 1 each MC Q6H #1 each 08/19/20 Unknown Rx Aerosol Mask] Nebulizer Accessories [Aeroneb Go] 1 each MC Q6H #1 each 08/19/20 Unknown Rx Nebulizer Accessories [Mouthpiece] 1 each MC Q6H #1 each 08/19/20 Unknown Rx Budesonide [Pulmicort Flexhaler] 1 puff IH BID #1 aer.pow.ba 09/09/20 Unknown Rx Prednisone [predniSONE 10 mg 10 mg PO .TAPER #1 tab.ds.pk 09/09/20 Unknown Rx (6-Day Pack, 21 Tabs)] Allergies Allergy/AdvReac Type Severity Reaction Status Date / Time No Known Allergies Allergy Verified 07/12/20 07:12 ED Review of Systems ROS: Stated complaint: SOB/ASTHMA Other details as noted in HPI ED Past Medical Hx - Past Medical History Previous Medical History?: Yes Hx Hypertension: Yes Hx Congestive Heart Failure: No Hx Diabetes: No Hx Deep Vein Thrombosis: No Hx Renal Disease: No Hx Sickle Cell Disease: No Hx Seizures: No Hx Asthma: Yes Hx COPD: No Hx HIV: No - Surgical History Past Surgical History?: No Additional Surgical History: 2 miscarriages in the past. Total of 7 pregnancies - Social History Smoking Status: Never Smoker Substance Use Type: Alcohol - Medications Home Medications: Home Medications Medication Instructions Recorded Confirmed Last Taken Type Tablet 1 tab PO DAILY 08/22/14 03/20/19 03/18/19 05:00 History 1 Albuterol Sulfate [Albuterol 0.63% 0.63 mg IH TID PRN #75 ml 07/12/20 Unknown Rx NEBS] Albuterol Sulfate [Proventil Hfa] 6.7 gm IH QID PRN #1 hfa.aer.ad 07/29/20 Unknown Rx Ipratropium [Atrovent NEB] 0.5 mg IH Q6HRT #75 ml 07/29/20 Unknown Rx guaiFENesin/CODEINE [Robitussin AC] 5 - 10 ml PO Q6H #120 ml 07/29/20 Unknown Rx ALBUTEROL NEB's [Proventil 0.083% 2.5 mg IH QID PRN #90 neb 08/19/20 Unknown Rx NEBS] Benzonatate [Tessalon Perles] 100 mg PO Q8HR #10 capsule 08/19/20 Unknown Rx Nebulizer Accessories [Adult 1 each MC Q6H #1 each 08/19/20 Unknown Rx Aerosol Mask] Nebulizer Accessories [Aeroneb Go] 1 each MC Q6H #1 each 08/19/20 Unknown Rx Nebulizer Accessories [Mouthpiece] 1 each MC Q6H #1 each 08/19/20 Unknown Rx Budesonide [Pulmicort Flexhaler] 1 puff IH BID #1 aer.pow.ba 09/09/20 Unknown Rx Prednisone [predniSONE 10 mg 10 mg PO .TAPER #1 tab.ds.pk 09/09/20 Unknown Rx (6-Day Pack, 21 Tabs)] ED Physical Exam - General Limitations: No Limitations General appearance: alert, in no apparent distress - Head Head exam: Present: atraumatic, normocephalic - Eye Eye exam: Present: normal appearance - ENT ENT exam: Present: mucous membranes moist, normal external ear exam - Neck Neck exam: Present: normal inspection, full ROM - Respiratory Respiratory exam: Present: wheezes, accessory muscle use, prolonged expiratory - Cardiovascular Cardiovascular Exam: Present: tachycardia - GI/Abdominal GI/Abdominal exam: Present: soft, normal bowel sounds - Extremities Exam Extremities exam: Present: normal inspection - Back Exam Back exam: Present: normal inspection - Neurological Exam Neurological exam: Present: alert, oriented X3, normal gait - Psychiatric Psychiatric exam: Present: normal affect, normal mood - Skin Skin exam: Present: warm, dry, intact, normal color. Absent: rash ED Course Vital Signs 09/09/20 14:33 Temperature 98.2 F Pulse Rate 102 H Respiratory 16 Rate Blood Pressure 138/85 O2 Sat by Pulse 98 Oximetry - Reevaluation(s) Reevaluation #1: 09/09/20 18:40 Patient is moving air without distress. Wheezing has improved. Critical Care Time: Yes (35) Critical care attestation.: If time is entered above; I have spent that time in minutes in the direct care of this critically ill patient, excluding procedure time. ED Disposition Clinical Impression: Asthma Disposition: DC-01 TO HOME OR SELFCARE Is pt being admited?: No Does the pt Need Aspirin: No Condition: Stable Instructions: Asthma (ED), Peak Flow Meter, How to Use a Dry Powder Inhaler, [id number], Asthma, Adult, [id number] Additional Instructions: Please complete prednisone. Use your Pulmicort inhaler as prescribed. Use your rescue inhaler as needed. Follow-up with a primary care provider I have referred you to [facility]. Tylenol or ibuprofen as needed for pain. Prescriptions: Prednisone [predniSONE 10 mg (6-Day Pack, 21 Tabs)] 10 mg PO .TAPER #1 tab.ds.pk Budesonide [Pulmicort Flexhaler] 1 puff IH BID #1 aer.pow.ba Referrals: [facility] [Provider Group] - 3-5 Days Forms: Work/School Release Form(ED)
[2020-09-09 18:53] VITALS: BP 126/62
== END 2020-09-09 18:58 | disposition home or self-care (01) ==
LOC: ED 14:29
DX: J45.909 Unspecified asthma, uncomplicated (principal); I10 Essential (primary) hypertension; Z72.89 Other problems related to lifestyle; Z79.899 Other long term (current) drug therapy
CPT/HCPCS: 94640; 96372; 99282; J1100; 94644

== ENCOUNTER 2020-11-27 00:01 | Inpatient (IN) | payer OTHER ==
[2020-11-27] MEDS ORDERED: IPRATROPIUM 0.02% NEBU 2.5 ML IH ONE ×4 (00:08→05:36)
[2020-11-27] MEDS ORDERED: EPINEPHrine/PF 1 MG/1 ML INJ ONE (00:09)
[2020-11-27] MEDS ORDERED: MAGNESIUM SULFATE 2 GM/50 ML BAG IV ONE ×2 (00:09→00:10)
[2020-11-27] MEDS ORDERED: ALBUTEROL 2.5 MG/3 ML NEBU IH ONE ×3 (00:09→05:36)
[2020-11-27] MEDS ORDERED: methylPREDNISolone Sod Succinate 125 MG/2 ML INJ IV ONE (00:10)
[2020-11-27] MEDS ORDERED: SODIUM CHLORIDE 0.9% 500 ML 500 ML IV ONE (00:10)
[2020-11-27] MEDS ORDERED: EPINEPHrine/PF 1 MG/1 ML INJ SUB-Q ONE (00:10)
[2020-11-27] MEDS ORDERED: IPRATROPIUM/ALBUTEROL SULFATE 3 ML AMPUL.NEB IH ONE (00:10)
--- NOTE | 2020-11-27 00:17 | Emergency Department Report ---
ED General Adult HPI - General Chief complaint: Dyspnea/Respdistress Stated complaint: ASTHMA/DANII PUI?: No Time Seen by Provider: 11/27/20 00:05 Source: patient, RN notes reviewed, old records reviewed Mode of arrival: Ambulatory Limitations: Physical Limitation - History of Present Illness Initial comments: The patient was evaluated in the emergency department for symptoms described in the history of present illness. He/she was evaluated in the context of the global COVID-19 pandemic, which necessitated consideration that the patient might be at risk for infection with the virus that causes COVID-19. Institutional protocols and algorithms that pertain to the evaluation of patients at risk for COVID-19 are in a state of rapid change based on information released by regulatory bodies including the CDC and federal and state organizations. These policies and algorithms were followed during the patient's care in the emergency department. Please note that these policies, procedures and recommendations changed on a rapid basis. This is a 34-year-old female. She states that she is not . She states she has received COVID-19 vaccination. She states she has a history of asthma. She has not been intubated. She states that she has not been admitted to the hospital for asthma. She presents to the ER today with complaint of spontaneous sudden onset shortness of breath, cough, chest tightness. The patient denies fever. She has chest tightness, but otherwise denies physical pain. She denies loss of taste and smell. The patient states that she is very short of breath. She cannot think of what may have triggered her asthma today. She states that this is typical of her prior asthma attacks. History limited as the patient is in marked respiratory distress, tripoding, using accessory muscles. However, she denies travel, surgery, leg pain, leg swelling, immobilization, DVT and pulmonary embolism risk factors. The patient was seen in this hospital in August of this year, and had a negative C T angiogram chest. -: Sudden Consistency: constant Improves with: medication, rest Worsens with: movement - Related Data Home Medications Medication Instructions Recorded Confirmed Last Taken Tablet 1 tab PO DAILY 08/22/14 03/20/19 03/18/19 05:00 1 Previous Rx's Medication Instructions Recorded Last Taken Type Albuterol Sulfate [Albuterol 0.63% 0.63 mg IH TID PRN #75 ml 07/12/20 Unknown Rx NEBS] Albuterol Sulfate [Proventil Hfa] 6.7 gm IH QID PRN #1 hfa.aer.ad 07/29/20 Unknown Rx Ipratropium [Atrovent NEB] 0.5 mg IH Q6HRT #75 ml 07/29/20 Unknown Rx guaiFENesin/CODEINE [Robitussin AC] 5 - 10 ml PO Q6H #120 ml 07/29/20 Unknown Rx ALBUTEROL NEB's [Proventil 0.083% 2.5 mg IH QID PRN #90 neb 08/19/20 Unknown Rx NEBS] Benzonatate [Tessalon Perles] 100 mg PO Q8HR #10 capsule 08/19/20 Unknown Rx Nebulizer Accessories [Adult 1 each MC Q6H #1 each 08/19/20 Unknown Rx Aerosol Mask] Nebulizer Accessories [Aeroneb Go] 1 each MC Q6H #1 each 08/19/20 Unknown Rx Nebulizer Accessories [Mouthpiece] 1 each MC Q6H #1 each 08/19/20 Unknown Rx Budesonide [Pulmicort Flexhaler] 1 puff IH BID #1 aer.pow.ba 09/09/20 Unknown Rx Prednisone [predniSONE 10 mg 10 mg PO .TAPER #1 tab.ds.pk 09/09/20 Unknown Rx (6-Day Pack, 21 Tabs)] Allergies Allergy/AdvReac Type Severity Reaction Status Date / Time No Known Allergies Allergy Verified 07/12/20 07:12 ED Review of Systems ROS: Stated complaint: ASTHMA/DANII Other details as noted in HPI Constitutional: denies: fever ENT: congestion Respiratory: shortness of breath, SOB with exertion, SOB at rest, wheezing Cardiovascular: other (Chest tightness) Gastrointestinal: denies: abdominal pain Psychiatric: anxiety Hematological/Lymphatic: denies: easy bleeding ED Past Medical Hx - Past Medical History Hx Hypertension: Yes Hx Congestive Heart Failure: No Hx Diabetes: No Hx Deep Vein Thrombosis: No Hx Renal Disease: No Hx Sickle Cell Disease: No Hx Seizures: No Hx Asthma: Yes Hx COPD: No Hx HIV: No - Surgical History Additional Surgical History: 2 miscarriages in the past. Total of 7 pregnancies - Social History Smoking Status: Never Smoker Substance Use Type: Alcohol - Medications Home Medications: Home Medications Medication Instructions Recorded Confirmed Last Taken Type Tablet 1 tab PO DAILY 08/22/14 03/20/19 03/18/19 05:00 History 1 Albuterol Sulfate [Albuterol 0.63% 0.63 mg IH TID PRN #75 ml 07/12/20 Unknown Rx NEBS] Albuterol Sulfate [Proventil Hfa] 6.7 gm IH QID PRN #1 hfa.aer.ad 07/29/20 Unknown Rx Ipratropium [Atrovent NEB] 0.5 mg IH Q6HRT #75 ml 07/29/20 Unknown Rx guaiFENesin/CODEINE [Robitussin AC] 5 - 10 ml PO Q6H #120 ml 07/29/20 Unknown Rx ALBUTEROL NEB's [Proventil 0.083% 2.5 mg IH QID PRN #90 neb 08/19/20 Unknown Rx NEBS] Benzonatate [Tessalon Perles] 100 mg PO Q8HR #10 capsule 08/19/20 Unknown Rx Nebulizer Accessories [Adult 1 each MC Q6H #1 each 08/19/20 Unknown Rx Aerosol Mask] Nebulizer Accessories [Aeroneb Go] 1 each MC Q6H #1 each 08/19/20 Unknown Rx Nebulizer Accessories [Mouthpiece] 1 each MC Q6H #1 each 08/19/20 Unknown Rx Budesonide [Pulmicort Flexhaler] 1 puff IH BID #1 aer.pow.ba 09/09/20 Unknown Rx Prednisone [predniSONE 10 mg 10 mg PO .TAPER #1 tab.ds.pk 09/09/20 Unknown Rx (6-Day Pack, 21 Tabs)] ED Physical Exam - General Limitations: Physical Limitation General appearance: alert, anxious, in distress - Head Head exam: Present: atraumatic, normocephalic - Eye Eye exam: Present: normal appearance - ENT ENT exam: Present: normal exam, normal orophraynx, mucous membranes moist, normal external ear exam - Neck Neck exam: Present: normal inspection, full ROM. Absent: tenderness, meningismus - Respiratory Respiratory exam: Present: respiratory distress, wheezes, rhonchi, accessory muscle use. Absent: stridor - Cardiovascular Cardiovascular Exam: Present: normal rhythm, tachycardia, normal heart sounds. Absent: bradycardia, irregular rhythm, systolic murmur, diastolic murmur, rubs, gallop - GI/Abdominal GI/Abdominal exam: Present: soft. Absent: distended, tenderness, guarding, rebound, rigid, pulsatile mass - Extremities Exam Extremities exam: Present: normal inspection, full ROM, other (2+ pulses noted in the bilateral upper and lower extremities. There is no palpable cord. nega tive Homans sign. Muscular compartments are soft. The pelvis is stable.). Absent: pedal edema, calf tenderness - Back Exam Back exam: Present: normal inspection. Absent: tenderness, CVA tenderness (R), CVA tenderness (L), muscle spasm, paraspinal tenderness, vertebral tenderness - Neurological Exam Neurological exam: Present: alert, oriented X3, other (No facial droop. Tongue midline. Extraocular movements intact bilaterally. Facial sensation intact to light touch in V1, V2, V3 distribution bilaterally. 5 and a 5 strength in 4 extremities. Sensation intact to light touch in 4 extremities.) - Psychiatric Psychiatric exam: Present: anxious - Skin Skin exam: Present: warm, dry, intact, normal color. Absent: rash ED Course Vital Signs 11/27/20 11/27/20 11/27/20 00:09 00:37 00:47 Temperature Pulse Rate 135 H 142 H Pulse Rate [ 142 H Bilateral Throughout] Respiratory 30 H 31 H Rate Respiratory 28 H Rate [Bilateral Throughout] Blood Pressure 148/95 Blood Pressure 186/106 [Right] O2 Sat by Pulse 100 100 Oximetry 11/27/20 00:53 Temperature 98.1 F Pulse Rate Pulse Rate [ Bilateral Throughout] Respiratory Rate Respiratory Rate [Bilateral Throughout] Blood Pressure Blood Pressure [Right] O2 Sat by Pulse Oximetry - Reevaluation(s) Reevaluation #1: 11/27/20 00:15 Differential diagnosis, including not limited to: Costochondritis, status asthmaticus Pneumonia, bronchitis, pneumothorax Assessment and plan: 34-year-old female, Who denies DVT and pulmonary embolism risk factors, who is low risk by Wells criteria for pulmonary embolism, with a known history of asthma, reactive airway disease, who presents to the ER today with a complaint of asthma exacerbation. Tachycardia, tachypnea and hypotension likely secondary to physiologic stress secondary to asthma exacerbation. Patient has wheezing, rhonchi, and accessory muscle use. Place patient on radiation monitor, start IV access, albuterol, Atrovent, steroids, magnesium, BiPAP therapy, and subcutaneous epinephrine. IV fluids. I recommended admission for clinical status asthmaticus. Patient is agreeable to this plan of care. She denies loss of taste and smell. She denies Covid exposure. She is COVID-19 vaccinated. 11/27/20 00:45 Reassessed. Feeling improved. Work of breathing improved. Still on BiPAP. Saturating well. Heart rate now in the 140s. She endorses that she feels more comfortable. 11/27/20 01:30 Feeling improved. Laboratory studies reviewed. Chest x-ray unremarkable. Admitted to stepdown unit under the care of hospital physician, Dr. Decker We have ordered potassium repletion Reevaluation #2: 11/27/20 01:31 Appreciate that patient rules in for systemic inflammatory response syndrome criteria. This is likely secondary to physiologic stress associated with underlying asthma/reactive airways disease. Her leukocytosis is likely a stress reaction. Do not suspect invasive bacterial infection at this time. We will therefore not order blood cultures, lactic acid, or antibiotics. ED Medical Decision Making - Lab Data Result diagrams: 11/27/20 00:19 11/27/20 00:19 Vital Signs 11/27/20 00:09 Pulse Rate 135 H Respiratory 30 H Rate Blood Pressure 186/106 [Right] O2 Sat by Pulse 100 Oximetry Lab Results 11/27/20 11/27/20 11/27/20 Range/Units 00:19 00:19 00:19 WBC 14.8 H (4.5-11.0) K/mm3 RBC 4.46 (3.65-5.03) M/mm3 Hgb 14.0 (10.1-14.3) gm/dl Hct 41.0 (30.3-42.9) % MCV 92 (79-97) fl MCH 31 (28-32) pg MCHC 34 (30-34) % RDW 13.5 (13.2-15.2) % Plt Count 274 (140-440) K/mm3 Lymph % (Auto) 28.6 (13.4-35.0) % [place] % (Auto) 8.0 H (0.0-7.3) % Eos % (Auto) 4.2 (0.0-4.3) % Baso % (Auto) 0.5 (0.0-1.8) % Lymph # (Auto) 4.2 (1.2-5.4) K/mm3 [place] # (Auto) 1.2 H (0.0-0.8) K/mm3 Eos # (Auto) 0.6 H (0.0-0.4) K/mm3 Baso # (Auto) 0.1 (0.0-0.1) K/mm3 Seg Neutrophils % 58.7 (40.0-70.0) % Seg Neutrophils # 8.7 H (1.8-7.7) K/mm3 Sodium 140 (137-145) mmol/L Potassium 3.1 L (3.6-5.0) mmol/L Chloride 105.3 (98-107) mmol/L Carbon Dioxide 21 L (22-30) mmol/L Anion Gap 17 mmol/L BUN 5 L (7-17) mg/dL Creatinine 0.7 (0.6-1.2) mg/dL Estimated GFR > 60 ml/min BUN/Creatinine Ratio 7 % Glucose 140 H (65-100) mg/dL Calcium 8.7 (8.4-10.2) mg/dL Troponin T < 0.010 (0.00-0.029) ng/mL HCG, Quant < 2 (0-4) mIU/mL - EKG Data -: EKG Interpreted by [place] EKG shows normal: sinus rhythm Rate: tachycardia - EKG Data 11/27/20 00:24 EKG interpreted at 0: 1 6 AM Sinus rhythm, tachycardia, rate 140 bpm. Normal axis, normal P wave axis. High left ventricular voltage. Motion artifact. This is an abnormal EKG. This is not a STEMI. It is unchanged from prior EKG, with the exception of tachycardia, from 03/20/2019 - Radiology Data Radiology results: pending, report reviewed, image reviewed 1 view x-ray of the chest shows no acute findings. Critical Care Time: Yes Critical care time in (mins) excluding proc time.: 35 Critical care attestation.: If time is entered above; I have spent that time in minutes in the direct care of this critically ill patient, excluding procedure time. ED Disposition Clinical Impression: Status asthmaticus, Hypokalemia Disposition: ADMITTED INPATIENT Is pt being admited?: Yes Does the pt Need Aspirin: No Condition: Serious Referrals: PRIMARY CARE,MD [Primary Care Provider] - 3-5 Days
[2020-11-27 01:08] LABS: Basophils # (Auto) 0.1 K/mm3 (0.0-0.1); Basophils % (Auto) 0.5 % (0.0-1.8); Eosinophils # (Auto) 0.6 K/mm3 (0.0-0.4); Eosinophils % (Auto) 4.2 % (0.0-4.3); Lymphocytes # (Auto) 4.2 K/mm3 (1.2-5.4); Lymphocytes % (Auto) 28.6 % (13.4-35.0); Mean Corpuscular HGB Conc 34 % (30-34); Mean Corpuscular Volume 92 fl (79-97); Monocytes # (Auto) 1.2 K/mm3 (0.0-0.8); Platelet Count 274 K/mm3 (140-440); Red Blood Count 4.46 M/mm3 (3.65-5.03); Red Cell Distribution Width 13.5 % (13.2-15.2)
[2020-11-27 01:24] LABS: Blood Urea Nitrogen 5 mg/dL (7-17); Calcium 8.7 mg/dL (8.4-10.2); Hemolysis Index 6
[2020-11-27 01:27] LABS: BUN/Creatinine Ratio 7
--- NOTE | 2020-11-27 01:28 | XRay Report ---
CHEST 1 VIEW 11/27/2020 12:18 AM INDICATION / CLINICAL INFORMATION: Asthma. COMPARISON: 07/29/2020 FINDINGS: SUPPORT DEVICES: None. HEART / MEDIASTINUM: No significant abnormality. LUNGS / PLEURA: No significant pulmonary or pleural abnormality. No pneumothorax. ADDITIONAL FINDINGS: No significant additional findings. IMPRESSION: 1. No acute findings. Signer Name: Nic Garzon MD Signed: 11/27/2020 1:24 AM Workstation Name: [id number]
[2020-11-27] MEDS ORDERED: SODIUM CHLORIDE 0.9% 1000 ML 1,000 ML ONE (02:34)
[2020-11-27] MEDS: POTASSIUM CHLORIDE 10 MEQ 10 MEQ/100 ML BAG IV SCH ×4 (02:42→08:17)
[2020-11-27] MEDS ORDERED: ALBUTEROL 2.5 MG/3 ML NEBU IH PRN ×2 (04:43→04:46)
[2020-11-27] MEDS ORDERED: oxyCODONE /ACETAMINOPHEN 5-325MG TAB PO PRN (04:43)
[2020-11-27] MEDS ORDERED: ONDANSETRON 4 MG/2 ML INJ IV PRN (04:43)
[2020-11-27] MEDS ORDERED: HYDROmorphone 1 MG/1 ML INJ IV PRN (04:43)
[2020-11-27] MEDS ORDERED: ACETAMINOPHEN 325 MG TAB PO PRN (04:43)
[2020-11-27] MEDS ORDERED: ALBUTEROL 8.5 GM MDI INHALATION IH PRN (04:46)
[2020-11-27] MEDS ORDERED: NON-FORMULARY EACH (Albuterol Sulfate [Albuterol 0.63% Nebs] 0.63 MG/3 ML Vial.Neb) IH PRN (04:46)
--- NOTE | 2020-11-27 04:54 | History and Physical Report ---
History of Present Illness Date of examination: 11/27/20 Date of admission: 11/27/20 Chief complaint: Shortness of breath Acute asthma exacerbation History of present illness: 34 years old female with history of asthma was brought to the emergency room because of progressive shortness of breath as stated cough and chest tightness. Patient complained james respiratory distress. Patient is tripoding and using accessory muscles. Patient has multiple episode of asthma in the past. Patient denied any chest pain, loss of breast taste or smell. Patient received COVID-19 vaccination In the emergency room patient is found to have acute asthma exacerbation. Salome ent is put on BiPAP. Will consult pulmonary to see the patient Med rec is done. Advance discharge process is initiated Past History Past Medical History: hypertension, other (Asthma) Medications and Allergies Allergies Allergy/AdvReac Type Severity Reaction Status Date / Time No Known Allergies Allergy Verified 07/12/20 07:12 Home Medications Medication Instructions Recorded Confirmed Last Taken Type Tablet 1 tab PO DAILY 08/22/14 03/20/19 03/18/19 05:00 History 1 Albuterol Sulfate [Albuterol 0.63% 0.63 mg IH TID PRN #75 ml 07/12/20 Unknown Rx NEBS] Albuterol Sulfate [Proventil Hfa] 6.7 gm IH QID PRN #1 hfa.aer.ad 07/29/20 Unknown Rx Ipratropium [Atrovent NEB] 0.5 mg IH Q6HRT #75 ml 07/29/20 Unknown Rx guaiFENesin/CODEINE [Robitussin AC] 5 - 10 ml PO Q6H #120 ml 07/29/20 Unknown Rx ALBUTEROL NEB's [Proventil 0.083% 2.5 mg IH QID PRN #90 neb 08/19/20 Unknown Rx NEBS] Benzonatate [Tessalon Perles] 100 mg PO Q8HR #10 capsule 08/19/20 Unknown Rx Nebulizer Accessories [Adult 1 each MC Q6H #1 each 08/19/20 Unknown Rx Aerosol Mask] Nebulizer Accessories [Aeroneb Go] 1 each MC Q6H #1 each 08/19/20 Unknown Rx Nebulizer Accessories [Mouthpiece] 1 each MC Q6H #1 each 08/19/20 Unknown Rx Budesonide [Pulmicort Flexhaler] 1 puff IH BID #1 aer.pow.ba 09/09/20 Unknown Rx Prednisone [predniSONE 10 mg 10 mg PO .TAPER #1 tab.ds.pk 09/09/20 Unknown Rx (6-Day Pack, 21 Tabs)] Active Meds: Active Medications Acetaminophen (Acetaminophen 325 Mg Tab) 650 mg PO Q4H PRN PRN Reason: Pain MILD(1-3)/Fever >100.5/SOW Albuterol (Albuterol 2.5 Mg/3 Ml Nebu) 2.5 mg IH Q3HRT PRN PRN Reason: Shortness Of Breath Albuterol (Albuterol 2.5 Mg/3 Ml Nebu) 2.5 mg IH QID PRN PRN Reason: Wheezing Albuterol (Albuterol 8.5 Gm Mdi Inhalation) puff IH QID PRN PRN Reason: Wheezing Albuterol/Ipratropium (Ipratropium/Albuterol Sulfate 3 Ml Ampul.Neb) 1 ampul IH Q6HRT YOAN Azithromycin (Azithromycin 250 Mg Tab) 250 mg PO QDAY YOAN; Protocol Benzonatate (Benzonatate 100 Mg Cap) 100 mg PO Q8HR YOAN Famotidine (Famotidine 20 Mg/2 Ml Inj) 20 mg IV BID YOAN Heparin Sodium (Porcine) (Heparin 5,000 Unit/1 Ml Vial) 5,000 unit SUB-Q Q8HR YOAN Hydromorphone HCl (Hydromorphone 1 Mg/1 Ml Inj) 0.5 mg IV Q3H PRN PRN Reason: Pain , Severe (7-10) Potassium Chloride (Kcl 10meq/100ml) 10 meq in 100 mls @ 100 mls/hr IV Q1H YOAN Stop: 11/27/20 05:59 Last Admin: 11/27/20 02:42 Dose: 100 mls/hr Documented by: Ipratropium [place] (Ipratropium 0.02% Nebu 2.5 Ml) 0.5 mg IH Q6HRT OYAN Methylprednisolone Sodium Succinate (Methylprednisolone Sod Succinate 40 Mg/1 Ml Inj) 40 mg IV Q6HR YOAN Miscellaneous Medication (Albuterol Sulfate [Albuterol 0.63% Nebs]) 0.63 mg IH TID PRN PRN Reason: Wheezing Miscellaneous Medication (Budesonide [Pulmicort Flexhaler]) 1 puff IH BID YOAN Montelukast Sodium (Montelukast 10 Mg Tab) 10 mg PO QHS YOAN Ondansetron HCl (Ondansetron 4 Mg/2 Ml Inj) 4 mg IV Q8H PRN PRN Reason: Nausea And Vomiting Oxycodone/Acetaminophen (Oxycodone /Acetaminophen 5-325mg Tab) 1 tab PO Q6H PRN PRN Reason: Pain, Moderate (4-6) Sodium Chloride (Sodium Chloride 0.9% 10 Ml Flush Syringe) 10 ml IV BID YOAN Sodium Chloride (Sodium Chloride 0.9% 10 Ml Flush Syringe) 10 ml IV PRN PRN PRN Reason: LINE FLUSH Review of Systems All systems: negative Cardiovascular: shortness of breath, dyspnea on exertion Respiratory: cough, shortness of breath, dyspnea on exertion, wheezing Exam - Constitutional Vitals: Temp Pulse Resp BP Pulse Ox 98.1 F 120 H 38 H 132/81 100 11/27/20 00:53 11/27/20 03:53 11/27/20 03:53 11/27/20 03:53 11/27/20 03:53 General appearance: Present: no acute distress, well-nourished - EENT Eyes: Present: PERRL ENT: hearing intact, clear oral mucosa - Neck Neck: Present: supple, normal ROM - Respiratory Respiratory effort: labored, accessory muscle use Respiratory: bilateral: wheezing - Cardiovascular Heart Sounds: Present: S1 & S2. Absent: rub, click - Extremities Extremities: pulses symmetrical, No edema Peripheral Pulses: within normal limits - Abdominal General gastrointestinal: Present: soft, non-tender, non-distended, normal bowel sounds Female genitourinary: Present: normal - Integumentary Integumentary: Present: clear, warm, dry - Musculoskeletal Musculoskeletal: gait normal, strength equal bilaterally - Psychiatric Psychiatric: appropriate mood/affect, intact judgment & insight - Neurologic Neurologic: CNII-XII intact, moves all extremities HEART Score - HEART Score Troponin: Troponin T < 0.010 ng/mL (0.00-0.029) 11/27/20 00:19 Results - Labs CBC & Chem 7: 11/27/20 00:19 11/27/20 00:19 Labs: Laboratory Last Values WBC 14.8 K/mm3 (4.5-11.0) H 11/27/20 00:19 RBC 4.46 M/mm3 (3.65-5.03) 11/27/20 00:19 Hgb 14.0 gm/dl (10.1-14.3) 11/27/20 00:19 Hct 41.0 % (30.3-42.9) 11/27/20 00:19 MCV 92 fl (79-97) 11/27/20 00:19 MCH 31 pg (28-32) 11/27/20 00:19 MCHC 34 % (30-34) 11/27/20 00:19 RDW 13.5 % (13.2-15.2) 11/27/20 00:19 Plt Count 274 K/mm3 (140-440) 11/27/20 00:19 Lymph % (Auto) 28.6 % (13.4-35.0) 11/27/20 00:19 [place] % (Auto) 8.0 % (0.0-7.3) H 11/27/20 00:19 Eos % (Auto) 4.2 % (0.0-4.3) 11/27/20 00:19 Baso % (Auto) 0.5 % (0.0-1.8) 11/27/20 00:19 Lymph # (Auto) 4.2 K/mm3 (1.2-5.4) 11/27/20 00:19 [place] # (Auto) 1.2 K/mm3 (0.0-0.8) H 11/27/20 00:19 Eos # (Auto) 0.6 K/mm3 (0.0-0.4) H 11/27/20 00:19 Baso # (Auto) 0.1 K/mm3 (0.0-0.1) 11/27/20 00:19 Seg Neutrophils % 58.7 % (40.0-70.0) 11/27/20 00:19 Seg Neutrophils # 8.7 K/mm3 (1.8-7.7) H 11/27/20 00:19 Sodium 140 mmol/L (137-145) 11/27/20 00:19 Potassium 3.1 mmol/L (3.6-5.0) L 11/27/20 00:19 Chloride 105.3 mmol/L (98-107) 11/27/20 00:19 Carbon Dioxide 21 mmol/L (22-30) L 11/27/20 00:19 Anion Gap 17 mmol/L 11/27/20 00:19 BUN 5 mg/dL (7-17) L 11/27/20 00:19 Creatinine 0.7 mg/dL (0.6-1.2) 11/27/20 00:19 Estimated GFR > 60 ml/min 11/27/20 00:19 BUN/Creatinine Ratio 7 % 11/27/20 00:19 Glucose 140 mg/dL (65-100) H 11/27/20 00:19 Calcium 8.7 mg/dL (8.4-10.2) 11/27/20 00:19 Troponin T < 0.010 ng/mL (0.00-0.029) 11/27/20 00:19 HCG, Quant < 2 mIU/mL (0-4) 11/27/20 00:19 - Imaging and Cardiology Chest x-ray: report reviewed Assessment and Plan VTE prophylaxis?: Chemical Plan of care discussed with patient/family: Yes - Patient Problems (1) Status asthmaticus Current Visit: Yes Status: Acute Plan to address problem: Admit the patient to the IMCU. Put the patient on BiPAP. DuoNeb by nebulizer every 4 hours. Albuterol via nebulizer every 4 hours as needed. Solu-Medrol 40 mg IV every 6 hours. Singular 10 mg p.o. daily. Zithromax to 50 mg p.o. daily. Blood cultures sputum culture. Will consult pulmonary for evaluation (2) Hypertension Current Visit: Yes Status: Acute Plan to address problem: Hydralazine 10 mg IV every 6 hours as needed. We will monitor the blood pressure closely (3) Hypokalemia Current Visit: Yes Status: Acute Plan to address problem: Potassium is supplemented. Recheck BMP in the morning (4) DVT prophylaxis Current Visit: Yes Status: Acute Plan to address problem: Heparin 5000 units subcu every 8 hours for DVT prophylaxis. Pepcid 20 mg IV twice daily for GI prophylaxis. Patient is a full code
[2020-11-27] MEDS: methylPREDNISolone Sod Succinate 40 MG/1 ML INJ IV SCH ×3 (07:09→18:09)
[2020-11-27] MEDS: BENZONATATE 100 MG CAP PO SCH ×3 (07:09→21:55)
[2020-11-27] MEDS: HEPARIN 5,000 UNIT/1 ML VIAL SUB-Q SCH ×3 (07:44→21:55)
[2020-11-27] MEDS ORDERED: IPRATROPIUM 0.02% NEBU 2.5 ML IH SCH (08:00)
[2020-11-27] MEDS: BUDESONIDE 0.5 MG/2 ML NEBU IH SCH (08:23)
[2020-11-27] MEDS: IPRATROPIUM/ALBUTEROL SULFATE 3 ML AMPUL.NEB IH SCH ×2 (08:23→15:57)
--- NOTE | 2020-11-27 09:02 | Electrocardiograph Report ---
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
[2020-11-27] MEDS: FAMOTIDINE 20 MG/2 ML INJ IV SCH ×2 (09:50→21:55)
[2020-11-27] MEDS: AZITHROMYCIN 250 MG TAB PO SCH (09:50)
[2020-11-27] MEDS ORDERED: NON-FORMULARY EACH (Budesonide [Pulmicort Flexhaler] 90 MCG Aer.Pow.Ba) IH SCH (10:00)
--- NOTE | 2020-11-27 13:33 | Event Note ---
Date: 11/27/20 Patient seen and examined resting comfortable, she is hoarse, but says its secondary to the medications. She also states that she is feeling better some but not at has baseline and has recurrent failed shortness of breath. Will transfer to the floor once we get the COVID-19 Testing.
[2020-11-27] MEDS ORDERED: MONTELUKAST 10 MG TAB PO SCH (22:00)
[2020-11-28] MEDS: methylPREDNISolone Sod Succinate 40 MG/1 ML INJ IV SCH ×3 (00:59→13:43)
[2020-11-28 05:32] LABS: Hematocrit 40.7 % (30.3-42.9); Hemoglobin 13.7 gm/dl (10.1-14.3); Mean Corpuscular HGB Conc 34 % (30-34); Mean Corpuscular Volume 92 fl (79-97); Platelet Count 255 K/mm3 (140-440); Red Cell Distribution Width 13.5 % (13.2-15.2)
[2020-11-28 05:41] LABS: Blood Urea Nitrogen 9 mg/dL (7-17); Hemolysis Index 5
[2020-11-28 06:00] LABS: BUN/Creatinine Ratio 15
[2020-11-28] MEDS: HEPARIN 5,000 UNIT/1 ML VIAL SUB-Q SCH ×2 (06:15→13:42)
[2020-11-28] MEDS: BENZONATATE 100 MG CAP PO SCH ×2 (06:25→13:43)
[2020-11-28 07:21] LABS: Platelet Estimate c; RBC Morphology Normal; Total Cells Counted 100
[2020-11-28] MEDS: AZITHROMYCIN 250 MG TAB PO SCH (09:51)
[2020-11-28] MEDS: FAMOTIDINE 20 MG/2 ML INJ IV SCH (09:51)
[2020-11-28] MEDS: BUDESONIDE 0.5 MG/2 ML NEBU IH SCH ×2 (09:53→09:55)
[2020-11-28] MEDS: IPRATROPIUM/ALBUTEROL SULFATE 3 ML AMPUL.NEB IH SCH ×4 (09:54→14:06)
[2020-11-28] MEDS ORDERED: PNEUMOCOCCAL 23 Valent 0.5 ML VIAL IM ONE (12:00)
--- NOTE | 2020-11-28 12:15 | Discharge Summary ---
Providers - Providers Date of Admission: 11/27/20 04:44 Attending physician: ANGELICA AWAN MD Primary care physician: CAKE PULLER Hospitalization Condition: Serious Hospital course: 34 years old female with history of asthma was brought to the emergency room because of progressive shortness of breath as stated cough and chest tightness. Patient complained james respiratory distress. Patient is tripoding and using accessory muscles. Patient has multiple episode of asthma in the past. Patient denied any chest pain, loss of breast taste or smell. Patient received COVID-19 vaccination In the emergency room patient is found to have acute asthma exacerbation. Patient is put on BiPAP. Will consult pulmonary to see the patient Med rec is done. Advance discharge process is initiated Disposition: HOME / SELF CARE / HOMELESS Exam - Constitutional Vitals: Temp Pulse Resp BP Pulse Ox 98.5 F 113 H 17 132/70 98 11/28/20 12:02 11/28/20 09:59 11/28/20 09:59 11/28/20 07:00 11/28/20 10:01 Plan Activity: advance as tolerated, fall precautions Diet: low fat Follow up with: EDGARD CONCEPCION MD [Primary Care Provider] - 3-5 Days VIJAY BAER MD [Staff Physician] - 7 Days Prescriptions: Montelukast [Singulair] 10 mg PO QHS #30 tablet Prednisone [predniSONE 10 mg (6-Day Pack, 21 Tabs)] 10 mg PO .TAPER #1 tab.ds.pk ALBUTEROL NEB's [Proventil 0.083% NEBS] 2.5 mg IH QID PRN #90 neb PRN Reason: Wheezing Albuterol Sulfate [Proventil Hfa] 6.7 gm IH QID PRN #1 hfa.aer.ad PRN Reason: Wheezing Benzonatate [Tessalon Perles] 100 mg PO Q8HR #20 capsule Azithromycin [Zithromax TAB] 500 mg PO QDAY #10 tablet
[2020-11-28 14:29] VITALS: BP 136/73
== END 2020-11-28 16:09 | disposition home or self-care (01) | DRG 203 ==
LOC: ED 00:01 → IMCU 04:44
PROVIDERS: ADMIT Hospitalist; ATTEND Internal Medicine
PROC: 5A09357 Assistance with Respiratory Ventilation, Less than 24 Consecutive Hours, Continuous Positive Airway Pressure (ICD-10-PCS; principal; 2020-11-27)
DX: J45.902 Unspecified asthma with status asthmaticus (principal); I10 Essential (primary) hypertension; Z20.822 Contact with and (suspected) exposure to COVID-19; E87.6 Hypokalemia
CPT/HCPCS: 36415; 71045; 80048; 82962; 84484; 84702; 85007; 85025; 93005; 94640; 94644; G0378; J0171; J1644; J2920; J2930; J3475; J3480; J7030; J7040; U0003

== ENCOUNTER 2020-12-27 09:36 | Emergency (ER) | payer MEDICAID, OTHER ==
[2020-12-27] MEDS ORDERED: ALBUTEROL 2.5 MG/3 ML NEBU IH ONE (10:06)
[2020-12-27] MEDS ORDERED: IPRATROPIUM 0.02% NEBU 2.5 ML IH ONE (10:09)
[2020-12-27] MEDS ORDERED: MAGNESIUM SULFATE 2 GM/50 ML BAG IV ONE (10:28)
[2020-12-27] MEDS ORDERED: methylPREDNISolone Sod Succinate 125 MG/2 ML INJ IV ONE (10:28)
--- NOTE | 2020-12-27 10:38 | Emergency Department Report ---
ED Asthma HPI - General Chief Complaint: Adult Asthma Stated Complaint: ASTHMA SOB Time Seen by Provider: 12/27/20 10:02 Source: patient Mode of arrival: Ambulatory Limitations: No Limitations - History of Present Illness Initial Comments: Patient is 34 years old female with history of asthma. Patient presented to the ER complaining of shortness of breath, difficulty in breathing and wheezing for the last 2 to 3 days. Patient denied any fever or chills. Patient denied any chest pain. Patient stated that she has been using her albuterol with no i mprovement. Patient stated that she tested negative for COVID-19 last week. MD Complaint: "asthma attack", shortness of breath, wheezing -: days(s) Severity: moderate Context: recent URI - Related Data Current Asthma Therapy: inhaled bronchodilator Previous Rx's Medication Instructions Recorded Last Taken Type Nebulizer Accessories [Mouthpiece] 1 each MC Q6H #1 each 08/19/20 11/26/20 Rx ALBUTEROL NEB's [Proventil 0.083% 2.5 mg IH QID PRN #90 neb 11/28/20 Unknown Rx NEBS] Albuterol Sulfate [Proventil Hfa] 6.7 gm IH QID PRN #1 hfa.aer.ad 11/28/20 Unknown Rx Azithromycin [Zithromax TAB] 500 mg PO QDAY #10 tablet 11/28/20 Unknown Rx Benzonatate [Tessalon Perles] 100 mg PO Q8HR #20 capsule 11/28/20 Unknown Rx Montelukast [Singulair] 10 mg PO QHS #30 tablet 11/28/20 Unknown Rx Prednisone [predniSONE 10 mg 10 mg PO .TAPER #1 tab.ds.pk 11/28/20 Unknown Rx (6-Day Pack, 21 Tabs)] Allergies Allergy/AdvReac Type Severity Reaction Status Date / Time No Known Allergies Allergy Verified 12/27/20 09:40 ED Review of Systems ROS: Stated complaint: ASTHMA SOB Other details as noted in HPI Comment: All other systems reviewed and negative Constitutional: denies: chills, fever Respiratory: cough, shortness of breath, SOB with exertion, SOB at rest, w heezing. denies: orthopnea Cardiovascular: denies: chest pain, palpitations Gastrointestinal: denies: abdominal pain, nausea, vomiting Musculoskeletal: denies: back pain Neurological: denies: headache, weakness, numbness, paresthesias, confusion ED Past Medical Hx - Past Medical History Hx Hypertension: Yes Hx Congestive Heart Failure: No Hx Diabetes: No Hx Deep Vein Thrombosis: No Hx Renal Disease: No Hx Sickle Cell Disease: No Hx Seizures: No Hx Asthma: Yes Hx COPD: No Hx HIV: No - Surgical History Additional Surgical History: 2 miscarriages in the past. Total of 7 pregnancies - Social History Smoking Status: Never Smoker Substance Use Type: None - Medications Home Medications: Home Medications Medication Instructions Recorded Confirmed Last Taken Type Nebulizer Accessories [Mouthpiece] 1 each MC Q6H #1 each 08/19/20 11/27/20 11/26/20 Rx ALBUTEROL NEB's [Proventil 0.083% 2.5 mg IH QID PRN #90 neb 11/28/20 Unknown Rx NEBS] Albuterol Sulfate [Proventil Hfa] 6.7 gm IH QID PRN #1 hfa.aer.ad 11/28/20 Unknown Rx Azithromycin [Zithromax TAB] 500 mg PO QDAY #10 tablet 11/28/20 Unknown Rx Benzonatate [Tessalon Perles] 100 mg PO Q8HR #20 capsule 11/28/20 Unknown Rx Montelukast [Singulair] 10 mg PO QHS #30 tablet 11/28/20 Unknown Rx Prednisone [predniSONE 10 mg 10 mg PO .TAPER #1 tab.ds.pk 11/28/20 Unknown Rx (6-Day Pack, 21 Tabs)] ED Physical Exam - General Limitations: No Limitations General appearance: alert, in distress - Head Head exam: Present: atraumatic, normocephalic, normal inspection - Eye Eye exam: Present: normal appearance, PERRL - ENT ENT exam: Present: normal exam, normal orophraynx, mucous membranes moist - Neck Neck exam: Present: normal inspection, full ROM. Absent: tenderness, meningismus - Respiratory Respiratory exam: Present: respiratory distress, wheezes, rhonchi, accessory muscle use, decreased breath sounds, prolonged expiratory. Absent: rales - Cardiovascular Cardiovascular Exam: Present: regular rate, normal rhythm, normal heart sounds - GI/Abdominal GI/Abdominal exam: Present: soft, normal bowel sounds. Absent: distended, tenderness, guarding, rebound, rigid, organomegaly, mass, bruit, pulsatile mass, hernia - Extremities Exam Extremities exam: Present: normal inspection, full ROM, normal capillary refill. Absent: tenderness, pedal edema, joint swelling, calf tenderness - Back Exam Back exam: Present: normal inspection, full ROM. Absent: CVA tenderness (R), CVA tenderness (L) - Neurological Exam Neurological exam: Present: alert, oriented X3, CN II-XII intact, normal gait, reflexes normal. Absent: motor sensory deficit - Psychiatric Psychiatric exam: Present: normal mood - Skin Skin exam: Present: warm, intact, normal color ED Course Vital Signs 12/27/20 12/27/20 12/27/20 09:41 09:57 09:58 Temperature 98.2 F Pulse Rate 107 H Pulse Rate [ Bilateral Throughout] Respiratory 20 24 Rate Respiratory Rate [Bilateral Throughout] Blood Pressure 139/87 Blood Pressure [Right] O2 Sat by Pulse 100 99 100 Oximetry 12/27/20 12/27/20 12/27/20 10:00 10:03 10:15 Temperature 98.2 F 98.2 F Pulse Rate 93 H 93 H Pulse Rate [ Bilateral Throughout] Respiratory 24 24 Rate Respiratory Rate [Bilateral Throughout] Blood Pressure 139/87 152/101 Blood Pressure 151/101 [Right] O2 Sat by Pulse 97 99 100 Oximetry 12/27/20 12/27/20 12/27/20 10:20 10:30 10:46 Temperature Pulse Rate Pulse Rate [ 88 Bilateral Throughout] Respiratory Rate Respiratory 22 Rate [Bilateral Throughout] Blood Pressure 152/101 152/101 Blood Pressure [Right] O2 Sat by Pulse 98 100 Oximetry 12/27/20 12/27/20 12/27/20 11:00 11:17 11:31 Temperature Pulse Rate Pulse Rate [ Bilateral Throughout] Respiratory Rate Respiratory Rate [Bilateral Throughout] Blood Pressure 150/83 139/75 157/89 Blood Pressure [Right] O2 Sat by Pulse 100 100 Oximetry 12/27/20 11:37 Temperature 97.6 F Pulse Rate Pulse Rate [ Bilateral Throughout] Respiratory Rate Respiratory Rate [Bilateral Throughout] Blood Pressure Blood Pressure [Right] O2 Sat by Pulse Oximetry ED Medical Decision Making - Lab Data Result diagrams: 12/27/20 10:37 12/27/20 10:37 - Radiology Data Radiology results: report reviewed - Medical Decision Making Patient is 34 years old female with history of asthma. Patient presented to the ER complaining of shortness of breath, difficulty in breathing and wheezing for the last 2 to 3 days. Patient denied any fever or chills. Patient denied any chest pain. Patient stated that she has been using her albuterol with no improvement. Patient stated that she tested negative for COVID-19 last week. Labs reviewed and is unremarkable. Chest x-ray is negative for acute finding. Patient received albuterol, Atrovent, Solu-Medrol and magnesium sulfate. Patient stated that she is feeling much better. Patient given prescription for prednisone and Robitussin-AC and advised to follow-up with her primary doctor in the next 2 to 3 days and to return to the ER. Critical care attestation.: If time is entered above; I have spent that time in minutes in the direct care of this critically ill patient, excluding procedure time. ED Disposition Clinical Impression: Acute asthma exacerbation Disposition: 01 HOME / SELF CARE / HOMELESS Is pt being admited?: No Condition: Stable Instructions: Asthma, Adult Referrals: PRIMARY CARE, [Primary Care Provider] - 3-5 Days
--- NOTE | 2020-12-27 11:08 | XRay Report ---
CHEST 1 VIEW INDICATION: Asthma. COMPARISON: 11/27/2020 FINDINGS: Support devices: None. Heart: Within normal limits. Lungs/Pleura: The lungs remain mildly hyperinflated but clear. No pleural effusion or pneumothorax. Additional findings: None. IMPRESSION: Mild hyperinflation. No acute change since 11/27/2020. Signer Name: Eddie Mayo Jr, MD Signed: 12/27/2020 11:04 AM Workstation Name: [id number]
[2020-12-27 11:12] LABS: Hematocrit 42.7 % (30.3-42.9); Mean Corpuscular HGB Conc 35 % (30-34); Mean Corpuscular Volume 89 fl (79-97); Platelet Count 285 K/mm3 (140-440); Red Blood Count 4.81 M/mm3 (3.65-5.03); Red Cell Distribution Width 13.6 % (13.2-15.2)
[2020-12-27 11:25] LABS: Alanine Aminotransferase 9 units/L (7-56); Albumin 4.1 g/dL (3.9-5); Blood Urea Nitrogen 5 mg/dL (7-17); Calcium 9.2 mg/dL (8.4-10.2); Hemolysis Index 7
[2020-12-27 11:28] LABS: BUN/Creatinine Ratio 7
[2020-12-27 11:36] VITALS: BP 157/89
[2020-12-27 11:46] LABS: Total Cells Counted 100
[2020-12-27 11:47] LABS: Platelet Estimate Consistent w Auto; RBC Morphology Normal
== END 2020-12-27 13:43 | disposition home or self-care (01) ==
LOC: ED 09:36
DX: J45.901 Unspecified asthma with (acute) exacerbation (principal); I10 Essential (primary) hypertension; Z98.890 Other specified postprocedural states; Z79.899 Other long term (current) drug therapy
CPT/HCPCS: 36415; 71045; 80053; 85007; 85025; 85379; 94640; 96365; 96375; 99284; J2930; J3475; 94644

== ENCOUNTER 2021-01-31 14:13 | Emergency (ER) | payer MEDICAID ==
[2021-01-31] MEDS ORDERED: ALBUTEROL 2.5 MG/3 ML NEBU IH ONE (14:16)
[2021-01-31] MEDS ORDERED: IPRATROPIUM 0.02% NEBU 2.5 ML IH ONE (14:16)
[2021-01-31] MEDS ORDERED: methylPREDNISolone Sod Succinate 125 MG/2 ML INJ IV ONE (14:16)
[2021-01-31] MEDS ORDERED: MAGNESIUM SULFATE 2 GM/50 ML BAG IV ONE (14:17)
--- NOTE | 2021-01-31 15:17 | Emergency Department Report ---
ED General Adult HPI - General Chief complaint: Adult Asthma Stated complaint: asthma Time Seen by Provider: 01/31/21 14:16 Source: patient Mode of arrival: Ambulatory Limitations: No Limitations - History of Present Illness Initial comments: 35-year-old -[place] female patient with history of asthma presents with complaints of sudden onset of asthma exacerbation starting yesterday. She states she is out of her nebulizer solution and rescue inhaler at home. Patient states history of multiple intubations due to her asthma. She states this does feel like her asthma and denies any leg pain/swelling, hemoptysis, hormone use, or history of DVT/PE/recent long travel. Chest tightness per patient. She denies any loss of taste or smell. Patient is not vaccinated against Covid Severity scale (0 -10): 0 - Related Data Previous Rx's Medication Instructions Recorded Last Taken Type Nebulizer Accessories [Mouthpiece] 1 each MC Q6H #1 each 08/19/20 11/26/20 Rx Azithromycin [Zithromax TAB] 500 mg PO QDAY #10 tablet 11/28/20 Unknown Rx Benzonatate [Tessalon Perles] 100 mg PO Q8HR #20 capsule 11/28/20 Unknown Rx Montelukast [Singulair] 10 mg PO QHS #30 tablet 11/28/20 Unknown Rx Prednisone [predniSONE 10 mg 10 mg PO .TAPER #1 tab.ds.pk 12/27/20 Unknown Rx (6-Day Pack, 21 Tabs)] guaiFENesin/CODEINE [Robitussin AC] 10 ml PO TID PRN #100 ml 12/27/20 Unknown Rx ALBUTEROL NEB's [Proventil 0.083% 2.5 mg IH QID PRN #90 neb 01/31/21 Unknown Rx NEBS] Albuterol Sulfate [Proventil Hfa] 6.7 gm IH QID PRN #1 hfa.aer.ad 01/31/21 Unknown Rx Prednisone [predniSONE 10 mg 10 mg PO .TAPER #1 tab.ds.pk 01/31/21 Unknown Rx (6-Day Pack, 21 Tabs)] Allergies Allergy/AdvReac Type Severity Reaction Status Date / Time No Known Allergies Allergy Verified 12/27/20 09:40 ED Review of Systems ROS: Stated complaint: asthma Other details as noted in HPI Constitutional: denies: chills, diaphoresis, fever, malaise, weakness Respiratory: cough, shortness of breath, wheezing Cardiovascular: denies: chest pain Gastrointestinal: denies: abdominal pain, nausea, vomiting Neurological: denies: headache ED Past Medical Hx - Past Medical History Hx Hypertension: Yes Hx Congestive Heart Failure: No Hx Diabetes: No Hx Deep Vein Thrombosis: No Hx Renal Disease: No Hx Sickle Cell Disease: No Hx Seizures: No Hx Asthma: Yes Hx COPD: No Hx HIV: No - Surgical History Past Surgical History?: No Additional Surgical History: 2 miscarriages in the past. Total of 7 pregnancies - Social History Smoking Status: Never Smoker Substance Use Type: None - Medications Home Medications: Home Medications Medication Instructions Recorded Confirmed Last Taken Type Nebulizer Accessories [Mouthpiece] 1 each MC Q6H #1 each 08/19/20 11/27/20 11/26/20 Rx Azithromycin [Zithromax TAB] 500 mg PO QDAY #10 tablet 11/28/20 Unknown Rx Benzonatate [Tessalon Perles] 100 mg PO Q8HR #20 capsule 11/28/20 Unknown Rx Montelukast [Singulair] 10 mg PO QHS #30 tablet 11/28/20 Unknown Rx Prednisone [predniSONE 10 mg 10 mg PO .TAPER #1 tab.ds.pk 12/27/20 Unknown Rx (6-Day Pack, 21 Tabs)] guaiFENesin/CODEINE [Robitussin AC] 10 ml PO TID PRN #100 ml 12/27/20 Unknown Rx ALBUTEROL NEB's [Proventil 0.083% 2.5 mg IH QID PRN #90 neb 01/31/21 Unknown Rx NEBS] Albuterol Sulfate [Proventil Hfa] 6.7 gm IH QID PRN #1 hfa.aer.ad 01/31/21 Unknown Rx Prednisone [predniSONE 10 mg 10 mg PO .TAPER #1 tab.ds.pk 01/31/21 Unknown Rx (6-Day Pack, 21 Tabs)] ED Physical Exam - General Limitations: No Limitations General appearance: alert, in no apparent distress - Head Head exam: Present: atraumatic, normocephalic - Eye Eye exam: Present: normal appearance - Respiratory Respiratory exam: Present: wheezes, accessory muscle use. Absent: rhonchi, stridor - Cardiovascular Cardiovascular Exam: Present: regular rate, normal rhythm. Absent: systolic murmur, diastolic murmur, rubs, gallop - Extremities Exam Extremities exam: Absent: calf tenderness - Neurological Exam Neurological exam: Present: alert, oriented X3, normal gait - Psychiatric Psychiatric exam: Present: normal affect, normal mood - Skin Skin exam: Present: warm, dry, intact, normal color. Absent: rash ED Course Vital Signs 01/31/21 01/31/21 01/31/21 14:14 14:33 14:35 Temperature 98.8 F Pulse Rate 119 H 88 Pulse Rate [ Bilateral] Respiratory 18 18 18 Rate Respiratory Rate [Bilateral ] Blood Pressure 157/79 [Left] O2 Sat by Pulse 99 99 99 Oximetry 01/31/21 14:39 Temperature Pulse Rate Pulse Rate [ 90 Bilateral] Respiratory Rate Respiratory 18 Rate [Bilateral ] Blood Pressure [Left] O2 Sat by Pulse Oximetry ED Medical Decision Making - Medical Decision Making 35-year-old -[place] female patient with history of asthma presents with complaints of sudden onset of asthma exacerbation starting yesterday. She states she is out of her nebulizer solution and rescue inhaler at home. Patient states history of multiple intubations due to her asthma. She states this does feel like her asthma and denies any leg pain/swelling, hemoptysis, hormone use, or history of DVT/PE/recent long travel. Chest tightness per patient. She denies any loss of taste or smell. Patient is not vaccinated against Covid Patient given hour-long DuoNeb, Solu-Medrol, and magnesium sulfate. Patient states her symptoms have resolved. Upon recheck of her lungs, no wheezing is observed in breath sounds are clear. She is well-appearing, her vitals are within normal limits, she is stable for discharge home. Discussed strict return precautions in detail with patient who verbalizes understanding. Refills given of patient's nebulizer and albuterol rescue inhaler. Critical care attestation.: If time is entered above; I have spent that time in minutes in the direct care of this critically ill patient, excluding procedure time. ED Disposition Clinical Impression: Asthma exacerbation Disposition: HOME / SELF CARE / HOMELESS Is pt being admited?: No Condition: Stable Instructions: Asthma, Adult Prescriptions: Prednisone [predniSONE 10 mg (6-Day Pack, 21 Tabs)] 10 mg PO .TAPER #1 tab.ds.pk ALBUTEROL NEB's [Proventil 0.083% NEBS] 2.5 mg IH QID PRN #90 neb PRN Reason: Wheezing Albuterol Sulfate [Proventil Hfa] 6.7 gm IH QID PRN #1 hfa.aer.ad PRN Reason: Wheezing Referrals: PRIMARY CARE, [Primary Care Provider] - 3-[address] [facility] [Provider Group] - 3-5 Days
[2021-01-31 17:07] VITALS: BP 122/67
== END 2021-01-31 17:20 | disposition home or self-care (01) ==
LOC: ED 14:13
DX: J45.901 Unspecified asthma with (acute) exacerbation (principal); I10 Essential (primary) hypertension; Z79.899 Other long term (current) drug therapy
CPT/HCPCS: 94640; 96374; 96375; 99283; J2930; J3475; 94644

== ENCOUNTER 2021-03-05 08:54 | Emergency (ER) | payer MEDICAID ==
[2021-03-05] MEDS ORDERED: SODIUM CHLORIDE 0.9% 1000 ML 1,000 ML IV ONE (09:01)
[2021-03-05] MEDS ORDERED: ALBUTEROL 2.5 MG/3 ML NEBU IH ONE ×2 (09:01→09:02)
[2021-03-05] MEDS ORDERED: MAGNESIUM SULFATE 2 GM/50 ML BAG IV ONE (09:01)
[2021-03-05] MEDS ORDERED: IPRATROPIUM 0.02% NEBU 2.5 ML IH ONE (09:02)
--- NOTE | 2021-03-05 09:04 | Emergency Department Report ---
ED Shortness of Breath HPI - General Stated Complaint: asthma Time Seen by Provider: 03/05/21 09:00 - History of Present Illness Initial Comments: Patient presents secondary difficulty breathing. She was in moderate to severe respiratory distress with 1 word dyspnea. She was wheezing. After treatment, she felt much better. She states that she been having difficulty breathing for several hours to a day. She has never been intubated before. She has never had symptoms quite like this before. She came in because of the shortness of breath. She has had a dry cough. There has been no known change in medications. She has had no new pets. There is no new allergen exposure that she can recall. She denies recent history of travel or trauma. P atient states that she had no vomiting or diarrhea. She does not recall choking on anything. She had been given albuterol inhalers previously for shortness of breath which did not seem to help today. - Related Data Previous Rx's Medication Instructions Recorded Last Taken Type Nebulizer Accessories [Mouthpiece] 1 each MC Q6H #1 each 08/19/20 11/26/20 Rx Azithromycin [Zithromax TAB] 500 mg PO QDAY #10 tablet 11/28/20 Unknown Rx Montelukast [Singulair] 10 mg PO QHS #30 tablet 11/28/20 Unknown Rx guaiFENesin/CODEINE [Robitussin AC] 10 ml PO TID PRN #100 ml 12/27/20 Unknown Rx ALBUTEROL NEB's [Proventil 0.083% 2.5 mg IH QID PRN #90 neb 01/31/21 Unknown Rx NEBS] Albuterol Sulfate [Proventil Hfa] 6.7 gm IH QID PRN #1 hfa.aer.ad 01/31/21 Unknown Rx Benzonatate [Tessalon Perles] 100 mg PO Q8HR #20 capsule 03/05/21 Unknown Rx predniSONE [Deltasone] 50 mg PO QDAY #5 tab 03/05/21 Unknown Rx Allergies Allergy/AdvReac Type Severity Reaction Status Date / Time No Known Allergies Allergy Verified 12/27/20 09:40 ED Review of Systems ROS: Stated complaint: asthma Other details as noted in HPI Comment: All other systems reviewed and negative Constitutional: denies: fever Eyes: denies: eye pain ENT: denies: throat pain Respiratory: see HPI Cardiovascular: denies: chest pain Endocrine: denies: unexplained weight loss Gastrointestinal: denies: abdominal pain Genitourinary: denies: dysuria Musculoskeletal: denies: back pain Skin: denies: rash Neurological: denies: headache Hematological/Lymphatic: denies: easy bruising ED Past Medical Hx - Past Medical History Hx Hypertension: Yes Hx Congestive Heart Failure: No Hx Diabetes: No Hx Deep Vein Thrombosis: No Hx Renal Disease: No Hx Sickle Cell Disease: No Hx Seizures: No Hx Asthma: Yes Hx COPD: No Hx HIV: No - Surgical History Additional Surgical History: 2 miscarriages in the past. Total of 7 pregnancies - Family History Family history: hypertension - Social History Smoking Status: Never Smoker Substance Use Type: None - Medications Home Medications: Home Medications Medication Instructions Recorded Confirmed Last Taken Type Nebulizer Accessories [Mouthpiece] 1 each MC Q6H #1 each 08/19/20 11/27/20 11/26/20 Rx Azithromycin [Zithromax TAB] 500 mg PO QDAY #10 tablet 11/28/20 Unknown Rx Montelukast [Singulair] 10 mg PO QHS #30 tablet 11/28/20 Unknown Rx guaiFENesin/CODEINE [Robitussin AC] 10 ml PO TID PRN #100 ml 12/27/20 Unknown Rx ALBUTEROL NEB's [Proventil 0.083% 2.5 mg IH QID PRN #90 neb 01/31/21 Unknown Rx NEBS] Albuterol Sulfate [Proventil Hfa] 6.7 gm IH QID PRN #1 hfa.aer.ad 01/31/21 Unknown Rx Benzonatate [Tessalon Perles] 100 mg PO Q8HR #20 capsule 03/05/21 Unknown Rx predniSONE [Deltasone] 50 mg PO QDAY #5 tab 03/05/21 Unknown Rx ED Physical Exam - General Limitations: Physical Limitation ( Severe dyspnea), Other ( pulse ox noted and normal) General appearance: alert, in distress ( 1 word dyspnea) - Head Head exam: Present: atraumatic, normocephalic - Eye Eye exam: Present: normal appearance, EOMI - ENT ENT exam: Present: normal orophraynx, normal external ear exam - Neck Neck exam: Present: normal inspection. Absent: meningismus - Respiratory Respiratory exam: Present: respiratory distress ( severe), wheezes, accessory muscle use, decreased breath sounds - Cardiovascular Cardiovascular Exam: Present: normal rhythm, tachycardia - GI/Abdominal GI/Abdominal exam: Present: soft. Absent: tenderness - Extremities Exam Extremities exam: Present: normal capillary refill - Back Exam Back exam: Absent: CVA tenderness (R), CVA tenderness (L) - Neurological Exam Neurological exam: Present: alert, oriented X3, normal gait. Absent: motor sensory deficit - Psychiatric Psychiatric exam: Present: normal affect, normal mood - Skin Skin exam: Present: warm, dry ED Course Vital Signs 03/05/21 03/05/21 09:00 09:35 Pulse Rate 94 H Respiratory 24 Rate Blood Pressure 133/96 135/85 [Right] O2 Sat by Pulse 100 100 Oximetry - Reevaluation(s) Reevaluation #1: 03/05/21 09:03 Continuous albuterol neb with Atrovent were ordered. Steroids magnesium ordered . Old records reviewed. Reevaluation #2: 03/05/21 10:06 Labs are noted. X-ray has been reviewed. Continuous neb is in progress. ED Medical Decision Making - Lab Data Result diagrams: 03/05/21 09:10 03/05/21 09:10 rhythm strip: Sinus tachycardia without ectopy per monitor observe 10 seconds. - Radiology Data Radiology results: report reviewed - Medical Decision Making Patient presents with difficulty breathing. She was found to have some degree of wheezing and was treated empirically with a continuous albuterol neb. She improved dramatically. Chest x-ray showed no evidence of pneumonia or pneumothorax. There is no evidence of pulmonary edema. She did not have pleural effusion. Patient did not have any soft tissue swelling or subcutaneous emphysema. She did not appear to be septic or toxic. There is no recent tra michael or immobility there were suggest pulmonary embolism. She does have URI symptoms consistent with an infectious source. Whether this represents any type of influenza or Covid is unknown. Patient does not require emergent testing at this time. She does not require admission. She is not hypoxic. She feels better and can be managed as an outpatient. Critical Care Time: Yes ( 40 minutes exclusive of procedures based on impending respiratory failure) Critical care attestation.: If time is entered above; I have spent that time in minutes in the direct care of this critically ill patient, excluding procedure time. ED Disposition Clinical Impression: Acute respiratory distress Asthma exacerbation Qualifiers: Asthma severity: severe Asthma persistence: persistent Qualified Code(s): J45.51 - Severe persistent asthma with (acute) exacerbation Disposition: HOME / SELF CARE / HOMELESS Is pt being admited?: No Condition: Stable Instructions: Asthma, Adult, Peak Flow Meter Additional Instructions: drink plenty water. Return for problems. Follow-up with your regular doctor for recheck. If you do not have a regular doctor, follow-up with the referral physician. Prescriptions: predniSONE [Deltasone] 50 mg PO QDAY #5 tab Benzonatate [Tessalon Perles] 100 mg PO Q8HR #20 capsule Referrals: PRIMARY CAREMD [Primary Care Provider] - 3-5 Days FINA MONTANO MD [Staff Physician] - 3-5 Days
[2021-03-05 09:28] LABS: Basophils # (Auto) 0.1 K/mm3 (0.0-0.1); Basophils % (Auto) 0.8 % (0.0-1.8); Eosinophils # (Auto) 0.8 K/mm3 (0.0-0.4); Eosinophils % (Auto) 10.1 % (0.0-4.3); Hematocrit 44.8 % (30.3-42.9); Hemoglobin 14.7 gm/dl (10.1-14.3); Lymphocytes # (Auto) 3.4 K/mm3 (1.2-5.4); Lymphocytes % (Auto) 41.3 % (13.4-35.0); Mean Corpuscular HGB Conc 33 % (30-34); Mean Corpuscular Volume 91 fl (79-97); Monocytes # (Auto) 0.5 K/mm3 (0.0-0.8); Monocytes % (Auto) 6.6 % (0.0-7.3); Platelet Count 282 K/mm3 (140-440); Red Blood Count 4.95 M/mm3 (3.65-5.03); Red Cell Distribution Width 13.1 % (13.2-15.2)
[2021-03-05 09:37] VITALS: BP 135/85
[2021-03-05 09:42] LABS: Blood Urea Nitrogen 6 mg/dL (7-17); Calcium 8.9 mg/dL (8.4-10.2); Hemolysis Index 54
[2021-03-05 09:43] LABS: BUN/Creatinine Ratio 10
--- NOTE | 2021-03-05 10:25 | XRay Report ---
CHEST 1 VIEW 03/05/2021 9:19 AM INDICATION / CLINICAL INFORMATION: dyspnea. COMPARISON: 12/27/2020 FINDINGS: SUPPORT DEVICES: None. HEART / MEDIASTINUM: No significant abnormality. LUNGS / PLEURA: No significant pulmonary or pleural abnormality. No pneumothorax. ADDITIONAL FINDINGS: No significant additional findings. IMPRESSION: 1. No acute findings. Signer Name: Jacques Spivey DO Signed: 03/05/2021 10:21 AM Workstation Name: [id number]
== END 2021-03-05 11:12 | disposition home or self-care (01) ==
LOC: ED 08:54
DX: R06.03 Acute respiratory distress (principal); J45.51 Severe persistent asthma with (acute) exacerbation; I10 Essential (primary) hypertension
CPT/HCPCS: 36415; 71045; 80048; 85025; 94640; 96365; 99291; J3475; J7030; 99284; Q0162

== ENCOUNTER 2021-03-26 22:04 | Emergency (ER) | payer MEDICAID ==
[2021-03-26] MEDS ORDERED: IPRATROPIUM/ALBUTEROL SULFATE 3 ML AMPUL.NEB IH ONE (22:10)
[2021-03-26] MEDS ORDERED: ACETAMINOPEN W/CODEINE 120-12MG ORAL LIQD 5 ML PO STA (22:17)
[2021-03-26] MEDS ORDERED: dexAMETHasone 4 MG/ML VIAL IM ONE (22:17)
--- NOTE | 2021-03-26 22:20 | Emergency Department Report ---
ED Asthma HPI - General Chief Complaint: Adult Asthma Stated Complaint: ASTHMA Time Seen by Provider: 03/26/21 22:17 Source: patient Mode of arrival: Ambulatory Limitations: No Limitations - History of Present Illness Initial Comments: 35-year-old female reports having a pressure tract infection was triggered asthma exacerbation MD Complaint: "asthma attack", shortness of breath, wheezing -: week(s) (3) Severity: moderate Context: recent URI Associated Symptoms: productive cough, chest pain (with excessive coughing spells) Treatments Prior to Arrival: inhaled bronchodilator - Related Data Previous Rx's Medication Instructions Recorded Last Taken Type Nebulizer Accessories [Mouthpiece] 1 each MC Q6H #1 each 08/19/20 11/26/20 Rx Azithromycin [Zithromax TAB] 500 mg PO QDAY #10 tablet 11/28/20 Unknown Rx Albuterol Sulfate [Proventil Hfa] 6.7 gm IH QID PRN #1 hfa.aer.ad 01/31/21 Unknown Rx Benzonatate [Tessalon Perles] 100 mg PO Q8HR #20 capsule 03/05/21 Unknown Rx ALBUTEROL NEB's [Proventil 0.083% 2.5 mg IH QID PRN #90 neb 03/27/21 Unknown Rx NEBS] Montelukast [Singulair] 10 mg PO QHS #30 tablet 03/27/21 Unknown Rx guaiFENesin/CODEINE [Robitussin AC] 10 ml PO TID PRN #100 ml 03/27/21 Unknown Rx predniSONE [Deltasone] 50 mg PO QDAY #5 tab 03/27/21 Unknown Rx Allergies Allergy/AdvReac Type Severity Reaction Status Date / Time No Known Allergies Allergy Verified 12/27/20 09:40 ED Review of Systems ROS: Stated complaint: ASTHMA Other details as noted in HPI Comment: All other systems reviewed and negative ED Past Medical Hx - Past Medical History Previous Medical History?: Yes Hx Hypertension: Yes Hx Congestive Heart Failure: No Hx Diabetes: No Hx Deep Vein Thrombosis: No Hx Renal Disease: No Hx Sickle Cell Disease: No Hx Seizures: No Hx Asthma: Yes Hx COPD: No Hx HIV: No - Surgical History Past Surgical History?: Yes Additional Surgical History: 2 miscarriages in the past. Total of 7 pregnancies - Social History Smoking Status: Never Smoker Substance Use Type: None - Medications Home Medications: Home Medications Medication Instructions Recorded Confirmed Last Taken Type Nebulizer Accessories [Mouthpiece] 1 each MC Q6H #1 each 08/19/20 11/27/20 11/26/20 Rx Azithromycin [Zithromax TAB] 500 mg PO QDAY #10 tablet 11/28/20 Unknown Rx Albuterol Sulfate [Proventil Hfa] 6.7 gm IH QID PRN #1 hfa.aer.ad 01/31/21 Unknown Rx Benzonatate [Tessalon Perles] 100 mg PO Q8HR #20 capsule 03/05/21 Unknown Rx ALBUTEROL NEB's [Proventil 0.083% 2.5 mg IH QID PRN #90 neb 03/27/21 Unknown Rx NEBS] Montelukast [Singulair] 10 mg PO QHS #30 tablet 03/27/21 Unknown Rx guaiFENesin/CODEINE [Robitussin AC] 10 ml PO TID PRN #100 ml 03/27/21 Unknown Rx predniSONE [Deltasone] 50 mg PO QDAY #5 tab 03/27/21 Unknown Rx ED Physical Exam - General Limitations: No Limitations General appearance: alert, in no apparent distress - Head Head exam: Present: atraumatic, normocephalic - Eye Eye exam: Present: normal appearance, PERRL, EOMI Pupils: Present: normal accommodation - ENT ENT exam: Present: mucous membranes moist, other (congestion and pharynx ) - Neck Neck exam: Present: normal inspection - Respiratory Respiratory exam: Present: normal lung sounds bilaterally, wheezes (coarse bs). Absent: respiratory distress - Cardiovascular Cardiovascular Exam: Present: regular rate, normal rhythm. Absent: systolic murmur, diastolic murmur, rubs, gallop - GI/Abdominal GI/Abdominal exam: Present: soft, normal bowel sounds - Extremities Exam Extremities exam: Present: normal inspection - Back Exam Back exam: Present: normal inspection - Neurological Exam Neurological exam: Present: alert, oriented X3 - Psychiatric Psychiatric exam: Present: normal affect, normal mood - Skin Skin exam: Present: warm, dry, intact, normal color. Absent: rash ED Course Vital Signs 03/26/21 22:07 Temperature 98.0 F Pulse Rate 115 H Respiratory 18 Rate Blood Pressure 129/85 O2 Sat by Pulse 96 Oximetry ED Medical Decision Making - Radiology Data Radiology results: [facility] [address] [place] [address] XRay Report Signed Patient: DIANDRA EVANGELISTA MR#: [id number] : 1985 Acct:[id number] Age/Sex: 35 / F ADM Date: 03/26/21 Loc: ED Attending Dr: Ordering Physician: MARCO ANTONIO IRAHETA Date of Service: 03/26/21 Procedure(s): XR chest routine 2V Accession Number(s): [id number] cc: MARCO ANTONIO IRAHETA Fluoro Time In Minutes: CHEST 2 VIEWS INDICATION: cough. COMPARISON: 03/26/2021 FINDINGS: SUPPORT DEVICES: None. HEART: Within normal limits. LUNGS/PLEURA: No acute air space or interstitial disease. No pneumothorax. ADDITIONAL FINDINGS: None. IMPRESSION: 1. No acute findings. Signer Name: Thomas Alcantara MD Signed: 03/26/2021 10:56 PM Workstation Name: [id number] Transcribed By: ARLYN Dictated By: Thomas Alcantara MD Electronically Authenticated By: Thomas Alcantara MD Signed Date/Time: 03/26/212255 DD/ 54 - Medical Decision Making No altered mental status, saddle respirations, belly breathing or other signs of impending ventilatory failure. No intubations or recent admissions to the hospital for asthma. Unlikely pneumonia, CHF, COPD, GERD Workup Review include a chest x-ray which was normal she also received steroids and albuterol Therapies: Prednisone 50 mg PO. Albuterol nebulizer Reassessment: Patient improved with albuterol and ipratropium in less than 3 hours. Disposition: Discharge home with return precautions. Advised to follow up with primary care physician within next 24-48 hours. Aside from this acute exacerbation patient has been well controlled on baseline home regimen. Rx short steroid course, albuterol, Singulair, Flovent Critical care attestation.: If time is entered above; I have spent that time in minutes in the direct care of this critically ill patient, excluding procedure time. ED Disposition Clinical Impression: Asthma, Upper respiratory infection Disposition: HOME / SELF CARE / HOMELESS Is pt being admited?: No Does the pt Need Aspirin: No Condition: Stable Instructions: Asthma (ED), Asthma, Adult, Viral Respiratory Infection, [id number], Cool Mist Vaporizer, Cough, Adult, [id number], Viral Respiratory Infection Test, Cough, Adult, How to Use a Dry Powder Inhaler Prescriptions: predniSONE [Deltasone] 50 mg PO QDAY #5 tab ALBUTEROL NEB's [Proventil 0.083% NEBS] 2.5 mg IH QID PRN #90 neb PRN Reason: Wheezing guaiFENesin/CODEINE [Robitussin AC] 10 ml PO TID PRN #100 ml PRN Reason: Cough Montelukast [Singulair] 10 mg PO QHS #30 tablet Referrals: PRIMARY CAREMD [Primary Care Provider] - 3-5 Days TRISTA PIÑA MD [Staff Physician] - 3-5 Days
--- NOTE | 2021-03-26 23:00 | XRay Report ---
CHEST 2 VIEWS INDICATION: cough. COMPARISON: 03/26/2021 FINDINGS: SUPPORT DEVICES: None. HEART: Within normal limits. LUNGS/PLEURA: No acute air space or interstitial disease. No pneumothorax. ADDITIONAL FINDINGS: None. IMPRESSION: 1. No acute findings. Signer Name: Thomas Alcantara MD Signed: 03/26/2021 10:56 PM Workstation Name: [id number]
[2021-03-27 01:36] VITALS: BP 139/73
== END 2021-03-27 01:37 | disposition home or self-care (01) ==
LOC: ED 22:04
DX: J45.901 Unspecified asthma with (acute) exacerbation (principal); J06.9 Acute upper respiratory infection, unspecified; I10 Essential (primary) hypertension; Z98.890 Other specified postprocedural states
CPT/HCPCS: 71046; 94640; 96372; 99283; J1100

== ENCOUNTER 2021-04-27 15:27 | Outpatient (CLI) | payer MEDICAID ==
[2021-04-27 16:07] LABS: ABG HCO3 23.4 mmol/L (20.0-26.0); ABG Methemoglobin 0.6 % (0.0-1.5); ABG PCO2 38.1 mm Hg; ABG PH 7.405 pH Units (7.350-7.450); ABG PO2 87.9 mm Hg (80.0-90.0)
[2021-04-27 16:31] LABS: Chol/HDL Ratio 2.47 %
== END 2021-04-27 15:28 | disposition home or self-care (01) ==
LOC: LAB 15:27
PROVIDERS: ATTEND Internal Medicine
DX: J45.909 Unspecified asthma, uncomplicated (principal); E78.00 Pure hypercholesterolemia, unspecified; J30.89 Other allergic rhinitis
CPT/HCPCS: 36415; 80061; 82785; 82803; 84436; 84443